=== PATIENT | female | born 1970 | race Caucasian/White ===

== ENCOUNTER 2020-10-04 07:38 | Outpatient (REF) | payer OTHER, SELFPAY ==
--- NOTE | 2020-10-04 07:42 | XR_ITS ---
EXAMINATION: XR CERVICAL SPINE CLINICAL INFORMATION: Cervicalgia COMPARISON: None TECHNIQUE: 3 views of the cervical spine were obtained. FINDINGS: No fracture or subluxation. Vertebral body height and alignment is maintained. There is diffuse disc space narrowing, most prominently spanning from the C4 level through C7. Associated endplate osteophyte formation and sclerosis. Mild facet arthropathy. The atlantoaxial joint is well aligned. The dens is intact. The lung apices are clear. The prevertebral soft tissues are unremarkable. XR/XR cervical spine 3V IMPRESSION: Moderate degenerative changes of the mid to lower cervical spine.
== END 2020-10-04 07:39 | disposition home or self-care (01) ==
LOC: HO.XRAY 07:38
PROVIDERS: Visit Provider Internal Medicine
DX: M54.2 Cervicalgia (principal)
CPT/HCPCS: 72040

== ENCOUNTER 2020-12-13 10:36 | Outpatient (REF) | payer OTHER, SELFPAY ==
[2020-12-17 06:57] LABS: HPV mRNA E6/E7 rflx Not Detected (Not Detected)
== END 2020-12-13 10:37 | disposition home or self-care (01) ==
LOC: HO.LAB 10:36
PROVIDERS: PCP Internal Medicine; Visit Provider Advanced Practice Midwife
DX: Z01.419 Encounter for gynecological examination (general) (routine) without abnormal findings (principal); E78.00 Pure hypercholesterolemia, unspecified; E03.9 Hypothyroidism, unspecified
CPT/HCPCS: 36415; 87624; 88142

== ENCOUNTER 2021-02-15 08:00 | Outpatient (REF) | payer OTHER, SELFPAY ==
--- NOTE | ~2021-02-15 | MR_ITS ---
MR CERVICAL SPINE WITHOUT CONTRAST CLINICAL INFORMATION: Bilateral lower cervical root compression and possible myelopathy. COMPARISON: Cervical spine radiographs 10/04/2020. TECHNIQUE: MRI of the cervical spine was obtained using routine sequences without contrast. FINDINGS: Straightening of the cervical lordosis. There is moderate disc volume loss at C4-C5, C5-C6, and C6-C7. There Modic type I endplate signal changes at C4-C5 and Modic type II endplate signal changes at C5-C6 and C6-C7. There is bone marrow edema within the right C2-C3, left C3-C4, and the bilateral T3 and T4 facets that is most likely degenerative or inflammatory. There Modic type I endplate signal changes at C4-C5. Vertebral body heights are maintained. The craniocervical junction is unremarkable. The cervical arterial flow voids are maintained. There are no significant soft tissue findings. Partially imaged intracranial compartment is unremarkable. C2-C3: There is advanced right-sided hypertrophic facet arthropathy resulting in mild/moderate right-sided foraminal encroachment. There is no central canal stenosis and there is no left foraminal stenosis. C3-C4: Uncovertebral joint spurring and advanced facet arthropathy result in mild to moderate left-sided foraminal stenosis. No central canal and no right foraminal stenosis. C4-C5: Disc osteophyte mildly narrows the central canal. Uncovertebral joint spurring and advanced facet arthropathy result in moderate bilateral foraminal stenosis. C5-C6: Disc osteophyte mildly narrows the central canal. Uncovertebral joint spurring and facet arthropathy result in moderate bilateral foraminal stenosis. C6-C7: Disc osteophyte mildly narrows the central canal. Uncovertebral joint spurring and facet arthropathy result in moderate to severe right and mild left foraminal stenosis. C7-T1: Disc contour is normal. No central canal stenosis and no foraminal stenosis. MR/MR cervical spine wo con IMPRESSION: - Multilevel cervical spondylosis. Multifactorial degenerative changes result in moderate to severe right-sided foraminal stenosis at C6-C7 in varying degrees of mild to moderate foraminal encroachment throughout the remainder of the cervical spine as discussed above. There is advanced multilevel hypertrophic facet arthropathy. There is no severe central canal stenosis within the cervical spine. - There is bone marrow edema within the right C2-C3, left C3-C4, and the bilateral T3 and T4 facets that is most likely degenerative or inflammatory. There Modic type I endplate signal changes at C4-C5.
== END 2021-02-15 08:01 | disposition home or self-care (01) ==
LOC: HO.MRI 08:00
PROVIDERS: Visit Provider Psychiatry & Neurology Neurology
DX: M54.12 Radiculopathy, cervical region (principal)
CPT/HCPCS: 72141

== ENCOUNTER 2021-04-12 08:29 | Outpatient (REF) | payer OTHER, SELFPAY ==
--- NOTE | ~2021-04-12 | MM_ITS ---
EXAMINATION: MM SCREENING DIGITAL BREAST TOMOSYNTHESIS, BILATERAL CLINICAL INFORMATION: Screening. Asymptomatic. The lifetime risk of breast cancer based on the Tyrer-Cuzick Model is 8.6%. COMPARISON: Mammography: June 11, 2018 and July 23, 2013 TECHNIQUE: Digital mammography is performed in craniocaudal and mediolateral oblique views along with computer-aided detection (CAD). Digital breast tomosynthesis is performed in implant-displaced craniocaudal and implant-displaced mediolateral oblique views along with computer-aided detection (CAD). Synthesized 2D images are generated from the tomosynthesis. FINDINGS: There are scattered areas of fibroglandular density (ACR BI-RADS breast composition Category b). There are no significant masses, abnormal calcifications, or other abnormalities. MM/MM tomosynthesis screen imp BI IMPRESSION: There are no significant changes from prior study. ASSESSMENT: BI-RADS 1: Negative RECOMMENDATION: Routine annual mammography screening. This patient's information was entered into a reminder system with a target due date for their next mammogram.
== END 2021-04-12 08:30 | disposition home or self-care (01) ==
LOC: HO.MAMMO 08:29
PROVIDERS: Visit Provider Internal Medicine
DX: Z12.31 Encounter for screening mammogram for malignant neoplasm of breast (principal)
CPT/HCPCS: 77063; 77067

== ENCOUNTER 2022-05-24 07:29 | Outpatient (REF) | payer OTHER, SELFPAY ==
[2022-05-24 07:51] LABS: MANUAL DIFF FLAG NO
[2022-05-24 09:10] LABS: Basophils Percent Auto 0.2 % (0-2); Eosinophils Absolute Auto 0.1 X10*3/uL (0.0-0.4); Hematocrit 39.8 % (37.0-47.0); Hemoglobin 12.9 g/dl (12.0-16.0); Imm Gran Abs Auto 0.02 X10*3/uL (0.00-0.03); Imm Gran Pct Auto 0.4 % (0.0-0.4); Lymphocytes Absolute Auto 1.5 X10*3/uL (1.2-4.9); Lymphocytes Percent Auto 32.7 % (20-40); Mean Corpuscular HGB Conc 32.4 g/dl (31.0-35.0); Mean Corpuscular Hemoglobin 32.5 pg (27.0-33.0); Mean Corpuscular Volume 100.3 fL (80.0-98.0); Mean Platelet Volume 9.4 fL (9.4-12.3); Monocytes Absolute Auto 0.4 X10*3/uL (0.1-1.2); Monocytes Percent Auto 8.8 % (2-11); Neutrophils Absolute Auto 2.5 x10*3/uL (2.0-8.3); Neutrophils Percent Auto 55.9 % (45-73); Platelet Count 276 X10*3/uL (160-400); Red Blood Count 3.97 X10*6/uL (4.20-5.50); Red Cell Distribution Width 12.2 % (11.0-16.0); White Blood Count 4.5 X10*3/uL (4.8-10.8)
[2022-05-24 09:58] LABS: TSH reflex Free T4 2.46 uIU/mL (0.32-4.0)
[2022-05-24 10:18] LABS: Alanine Aminotransferase 15 U/L (0-31); Albumin Level 4.5 g/dL (3.5-5.0); Alkaline Phosphatase 66 U/L (39-117); Anion Gap 13 (12-20); Aspartate Amino Transferase 19 U/L (5-31); Bilirubin Total 0.5 mg/dL (0.0-1.0); Blood Urea Nitrogen 14 mg/dL (9-16); Calcium 9.3 mg/dL (8.4-10.2); Carbon Dioxide 27 mmol/L (22-29); Chloride 105 mmol/L (96-108); Cholesterol 241 mg/dL; Estimated Glomerular Filt Rate > 60; Glucose Fasting 93 mg/dL (60-99); HDL Cholesterol 85 mg/dL; LDL Cholesterol Calculated 146 mg/dl; Potassium 4.5 mmol/L (3.3-5.1); Sodium 140 mmol/L (135-145); Total Protein 7.1 g/dL (6.5-8.0); Triglycerides 54 mg/dL
== END 2022-05-24 07:30 | disposition home or self-care (01) ==
LOC: HO.LAB 07:29
PROVIDERS: PCP Internal Medicine; Visit Provider Nurse Practitioner Family
DX: E78.00 Pure hypercholesterolemia, unspecified (principal); I10 Essential (primary) hypertension; Z13.29 Encounter for screening for other suspected endocrine disorder
CPT/HCPCS: 36415; 80053; 80061; 84443; 85025

== ENCOUNTER 2023-02-26 11:17 | Outpatient (REF) | payer MEDICAID, SELFPAY ==
--- NOTE | ~2023-02-26 | MM_ITS ---
EXAMINATION: MM SCREENING DIGITAL BREAST TOMOSYNTHESIS, BILATERAL CLINICAL INFORMATION: Screening. Asymptomatic. The lifetime risk of breast cancer based on the Tyrer-Cuzick Model is 7%. COMPARISON: Mammography: 04/12/2021; outside mammography 06/11/2018, 07/23/2013 ([facility]). TECHNIQUE: Digital mammography is performed in craniocaudal and mediolateral oblique views along with computer-aided detection (CAD). Digital breast tomosynthesis is performed in implant-displaced craniocaudal and implant-displaced mediolateral oblique views along with computer-aided detection (CAD). Synthesized 2D images are generated from the tomosynthesis. FINDINGS: There are scattered areas of fibroglandular density (ACR BI-RADS breast composition Category b). There are bilateral implants. The margins are smooth and similar to prior studies. Parenchymal pattern is similar to prior exams. No developing density or interval architectural abnormality. There are no significant masses, abnormal calcifications, or other abnormalities. The axilla and skin contours are unremarkable. No significant changes. MM/MM tomosynthesis screen imp BI IMPRESSION: No mammographic evidence of malignancy. ASSESSMENT: BI-RADS 1: Negative RECOMMENDATION: Routine annual mammography screening. This patient's information was entered into a reminder system with a target due date for their next mammogram.
== END 2023-02-26 11:18 | disposition home or self-care (01) ==
LOC: HO.MAMMO 11:17
PROVIDERS: PCP Internal Medicine; Visit Provider Internal Medicine
DX: Z12.31 Encounter for screening mammogram for malignant neoplasm of breast (principal)
CPT/HCPCS: 77063; 77067

== ENCOUNTER 2023-05-30 09:06 | Day surgery (SDC) | payer MEDICAID, SELFPAY ==
[2023-05-30 09:37] VITALS: BMI 23.2
[2023-05-30 09:42] VITALS: BP 127/86; PULSE 62; RESP 16; TEMP 36.3; O2SAT 99
[2023-05-30] MEDS: Lactated Ringers 1,000 ML 100 ML IVCONT (09:45)
--- NOTE | 2023-05-30 09:45 | MHC.SHP ---
Pre-Procedural Eval Section A Date of Service: 05/30/23 Section B Chief Complaint: screening Relevant Family History (Specify if Yes): No Relevant Social History: Tobacco Use Present Medications: see Short Stay Collaborative assessment Medical History: Significant History History of Previous Operations: Relevant previous surgery/procedure and date(s) (partial hysterectomy, tubal ligation ) Allergies: Allergies Allergy/AdvReac Type Severity Reaction Status Date / Time Sulfa (Sulfonamide Allergy Unknown rash Verified 05/18/22 08:53 Antibiotics) Review of Systems Sugical H&P ROS: Negative: Constitution, Cardiovascular, Respiratory, Neurological, Psychiatric, Hem-Onc, Allergic/Immunologic, Gastrointestinal, Genitourinary, Musculoskeletal, Integumentary, Endocrine and Eyes/Ears/Nose/Throat Exam Surgical H&P Exam: Normal: HEENT, Normal: Heart, Normal: Lungs, Normal: Extremities, Normal: Abdomen, Normal: Skin and Normal: Neurological Plan Diagnosis/Plan: Unchanged I have reviewed the history and physical and performed a pertinent physical examination on my patient. No changes have occurred unless specified. Time Spent With Patient Time: Total time managing care of this patient today ____ minutes.
--- NOTE | 2023-05-30 09:59 | HO.ANESPROP2 ---
[facility] Active Problems Active Problems: All Active Problems (Updated 06/04/22 @ 10:06 by Claire Navarro MD) Thyroid disorder screening (Acute) Physical exam (Acute) Radicular pain of shoulder (Acute) Hand numbness (Acute) Degenerative disc disease, cervical (Acute) Hypercholesterolemia (Acute) Hypothyroid (Acute) Past Medical History Medical History Breast cancer screening Cervical cancer screening Hypercholesterolemia Hypothyroid Neck pain Psoriasis Thyroid nodule Family History Family History Father No problems noted. Mother No problems noted. Brother In good health Son In good health Daughter In good health Family history of problems with anesthesia: No Surgical History Surgical History Breast implant in situ H/O tubal ligation H/O: hysterectomy History of Problems with Anesthesia: No Social History Social History (Updated 05/18/22 @ 08:54 by VENITA Deluna) Housing: Apartment Alcohol intake: current Patient Tobacco Use Status: Current everyday Tobacco user Tobacco use type: Cigarette Cigarettes Per Day: 5 e-Cigarette/Vaping Use: Never Used Second Hand Smoke Exposure: No Use of substances other than those prescribed or required for medical reasons: No Are you DNR?: No Advance Directives: No Advance Directives Information Provided: Yes service: No Current occupational status: employed Current occupational exposures/hazards: No Sexual orientation: Straight/Heterosexual Cognitive needs: No Hearing needs: No Vision needs: No Meds Allergies Allergy/AdvReac Type Severity Reaction Status Date / Time Sulfa (Sulfonamide Allergy Unknown rash Verified 05/18/22 08:53 Antibiotics) Active Medications: Current Medications Lactated Ringer's (Lr) 1,000 mls @ 100 mls/hr IVCONT .Q10H MARIELOS Last Admin: 05/30/23 09:45 Dose: 100 mls/hr Exam Exam Date and Time: May 30, 2023 0959 Height,Weight and Vital Signs: Height 5 ft 4 in Weight 61.235 kg Last Vital Signs Temp 97.3 F 05/30/23 09:42 Pulse 62 05/30/23 09:42 Resp 16 05/30/23 09:42 BP 127/86 05/30/23 09:42 Pulse Ox 99 05/30/23 09:42 O2 Del Method Room Air 05/30/23 09:42 Airway Mallampati Class: II TM Dist: >3cm Neck ROM: Full Assessment and Plan Assessment Anesthesia Assessment: Anesthesia Plan Discussed, Smoking Cess. Discussed and Chart Reviewed Final Anesthetic Review Family History of Problems with Anesthesia: No History of Problems with Anesthesia: No NPO: Yes ASA Class: II Final Preanesthetic Review: No Changes in Pt Med Stat, Meds/Allgs Chart Reviewed, Consent Obtained/Reviewed and Anes Risks/Benef Reviewed Patient Risk: Low Procedure Risk: Low Anesthetic Plan Anesthetic Plan: MAC: Disposition: Standard PACU
--- NOTE | 2023-05-30 10:16 | W.PM.OPN ---
Operative Note Operative Note Date of Service: 05/30/23 Narrative: Operative Information Procedure Description: Colonoscopy Indication: screening Anesthesia: MAC COLONOSCOPY Instrument: Olympus variable stiffness pediatric scope 190L Colonoscopy Monitoring: Vital signs and clinical assessment, continuous EKG monitoring, Pulse oximetry, Carbon Dioxide monitoring and blood pressure monitoring were done throughout the procedure. Colon withdrawal time was 9 minutes. Procedure: The patient was placed in the left lateral decubitis position and pre-procedure medications were administered. After a digital rectal examination of the ano-rectum, the video colonoscope was inserted into the rectum and advanced through the colon to the cecum/TI. The colonoscope was slowly withdrawn in a retrograde panoramic fashion and the colon mucosa was carefully examined including a retroflexed view of the rectum. Findings and interventions are described below. Procedure Difficulty: easy Findings: Terminal Ileum-normal Right sided retroflexion--normal Cecum:normal Ascending Colon: normal Transverse Colon -normal Descending Colon:normal Sigmoid Colon: normal Rectum: Retroflexion with small internal hemorrhoids, grade I Anorectum - normal Colon preparation: [place] Bowel Preparation Scale Right colon; 2 Transverse colon: 2 Left colon; 3 (0 = Unprepared colon segment with mucosa not seen due to solid stool that cannot be cleared. 1 = Portion of mucosa of the colon segment seen, but other areas of the colon segment not well seen due to staining, residual stool and/or opaque liquid. 2 = Minor amount of residual staining, small fragments of stool and/or opaque liquid, but mucosa of colon segment seen well. 3 = Entire mucosa of colon segment seen well with no residual staining, small fragments of stool or opaque liquid) Impression and Post Procedure Diagnosis: internal hemorrhoids Plan: High fiber diet leaflet Avoid straining at stool, epsom salts and sitz bath, anusol supps or cream Repeat Colonoscopy in 10 years or earlier if clinically indicated Above findings were reviewed with the patient and relevant handouts were provided if indicated.
[2023-05-30 10:40] VITALS: BP 95/60; PULSE 58; RESP 16; TEMP 36.3; O2SAT 98
[2023-05-30 10:55] VITALS: BP 109/74; PULSE 73; RESP 14; TEMP 36.3; O2SAT 99
== END 2023-05-30 11:24 | disposition home or self-care (01) ==
PROVIDERS: PCP Internal Medicine; Visit Provider Internal Medicine Gastroenterology
PROC: 0DJD8ZZ Inspection of Lower Intestinal Tract, Via Natural or Artificial Opening Endoscopic (ICD-10-PCS; CPT 45378; principal; 2023-05-30 10:50)
DX: Z12.11 Encounter for screening for malignant neoplasm of colon (principal); K64.0 First degree hemorrhoids; E78.00 Pure hypercholesterolemia, unspecified; E03.9 Hypothyroidism, unspecified; F17.210 Nicotine dependence, cigarettes, uncomplicated; Z90.710 Acquired absence of both cervix and uterus
CPT/HCPCS: 45378

== ENCOUNTER → 2023-05-30 09:06 | Outpatient (BNV) | payer MEDICAID, SELFPAY | PROVIDERS: PCP Internal Medicine; Visit Provider Internal Medicine Gastroenterology | DX: Z12.11 Encounter for screening for malignant neoplasm of colon (principal); K64.0 First degree hemorrhoids | CPT/HCPCS: 45378 ==

== ENCOUNTER 2023-06-05 08:36 | Emergency (ER) | payer MEDICAID, SELFPAY ==
[2023-06-05 08:44] VITALS: BP 127/83; PULSE 79; RESP 18; TEMP 36.1; O2SAT 100; BMI 23.3
--- NOTE | 2023-06-05 10:18 | ED.GENADULT ---
HPI - General Adult General Chief complaint: Back Pain/Injury Stated complaint: lower back pain Time Seen by Provider: 06/05/23 09:53 Source: patient Mode of arrival: ambulatory Limitations: no limitations History of Present Illness HPI narrative: 52-year-old female presents to the ED for back pain that is worse on movement. Patient states back pain since Sunday night after bending down and then reaching for her plates. Patient states felt pain instantly. patient denies any blunt trauma to the back, urinary/ bowel incontinence, nausea, vomiting, fever, chills, dysuria, hematuria, flank pain, or trouble walking. Patient works as a [employer] and does heavy lifting. patient denies any history of IV drug use and denies any history of HIV or hep C. Patient denies any lower extremity tingling/numbness Related Data Previous Rx's Medication Instructions Recorded bisacodyl 5 mg tablet,delayed 10 mg PO ONCE 1 day #2 tabs 04/04/23 release (Dulcolax (bisacodyl)) polyethylene glycol 3350 17 238 g PO ONCE 1 day #238 grams 04/04/23 gram/dose oral powder (Miralax) bisacodyl 5 mg tablet,delayed 10 mg PO ONCE 1 day #2 tabs 05/24/23 release (Dulcolax (bisacodyl)) polyethylene glycol 3350 17 238 g PO ONCE 1 day #238 grams 05/24/23 gram/dose oral powder (Miralax) cyclobenzaprine 10 mg tablet 10 mg PO TID PRN muscle spasm 5 06/05/23 days #15 tabs naproxen 500 mg tablet 500 mg PO BID PRN pain 7 days #14 06/05/23 tabs prednisone 20 mg tablet 40 mg PO DAILY 5 days #10 tabs 06/05/23 Allergies Allergy/AdvReac Type Severity Reaction Status Date / Time Sulfa (Sulfonamide Allergy Unknown rash Verified 05/18/22 08:53 Antibiotics) Review of Systems Review of Systems: Back pain Yes all other systems are reviewed and are negative PMFSH Past Medical History Medical History (Updated 06/06/23 @ 00:01 by Mari Ellis) Breast cancer screening Cervical cancer screening Hypercholesterolemia Hypothyroid Neck pain Psoriasis Thyroid nodule Surgical History Breast implant in situ H/O tubal ligation H/O: hysterectomy Family History Family History Father No problems noted. Mother No problems noted. Brother In good health Son In good health Daughter In good health Social History Social History (Updated 05/18/22 @ 08:54 by VENITA Deluna) Housing: Apartment Alcohol intake: current Patient Tobacco Use Status: Current everyday Tobacco user Tobacco use type: Cigarette Cigarettes Per Day: 5 e-Cigarette/Vaping Use: Never Used Second Hand Smoke Exposure: No service: No Current occupational status: employed Current occupational exposures/hazards: No Sexual orientation: Straight/Heterosexual Cognitive needs: No Hearing needs: No Vision needs: No Physical Exam ED Vital Signs: Vital Signs - 24 hr 06/05/23 08:44 Temperature 97 F Pulse Rate 79 Respiratory Rate 18 Blood Pressure 127/83 Pulse Oximetry 100 Oxygen Delivery Method Room Air BMI result Body Mass Index 23.3 Const General: cooperative, healthy appearing, comfortable, no acute distress, well developed, alert, awake and Physically active Orientation/consciousness: oriented to person, oriented to place, oriented to time and patient oriented x3 HENMT Head: Yes normal to inspection, Yes No palpable skull fracture present, Yes normocephalic, Yes atraumatic and No abrasion Eyes General: appearance normal, both eyes and all related structures Neck Neck: Yes normal visual inspection, Yes full ROM, Yes no lymphadenopathy, Yes no meningeal signs, Yes trachea midline, Yes supple, No anterior neck swelling and No tender Chest Chest palpation & inspection: normal inspection of the chest and normal palpation of entire chest wall Resp Effort & Inspection: normal respiratory effort and able to speak in complete sentences Auscultation: clear to auscultation bilaterally Cardio Jugular venous distension: no JVD Heart sounds: S1 normal heart sound present and S2 normal heart sound present GI Inspection: Yes normal to inspection and No abdominal wall ecchymosis Palpation (GI): Soft to palpation, not firm, nontender, no guarding and not rigid General: No CVA tenderness and Yes no CVA tenderness Back/Spine/Pelvis Back: no CVA tenderness, No CVA tenderness and back tenderness ( Negative for spine tenderness. Positive for muscular back pain movement) Skin General skin exam: no rashes or lesions noted and elasticity normal Neuro General: oriented to person, oriented to place, oriented to time, patient oriented x3, gait normal, tone normal, moves all extremities, Normal light touch and pain sensation, no meningeal signs, no focal motor deficits, CN's II-XI intact bilaterally and normal sensation to monofilament Extrem General: Yes normal to inspection and Yes full ROM Psych Appearance: grossly normal, well kempt and not disheveled Medical Decision Making Medical Decision Making MDM Narrative: 52 yold female presents to the ED for back pain after reaching for her plates. patient denies any abdominal pain, nausea, vomiting, flank pain, fever, chills, dysuria, hematuria, or any urinary/ bowel incontinence. Patient denies any IV drug use or history of HIV hep C. patient stable presently no indication for x-ray. Differential Diagnosis Differential Diagnoses: The differential diagnosis associated with the presentation includes ( Back sprain, muscle spasm, fracture, arthritis, cauda equinus syndrome, epidural abscess, UTI, kidney stones) Admission/Observation Consideration of admission/observation: Escalation of care including admission/observation considered External Record Review External record reviewed: Other (Prior ED visist) Tests considered The following testing was considered but not selected: Xray, UA Prescription Management I considered prescription management with: Pain Medication and Other Discharge Plan Discharge Clinical Impression: Back pain, Low back sprain Patient Disposition: Home, Self-Care Instructions: Back Pain (ED) Additional Instructions: Return to the ED immediately for urinary/ bowel incontinence, severe back pain, abdominal pain, nausea, vomiting, flank pain, fever, chills, dysuria, hematuria, inability to walk, paralysis of lower extremity, tingling, numbness, or any other concerning symptoms. Please follow-up with primary care provider. Prescriptions: New prednisone 20 mg tablet 40 mg PO DAILY 5 Days Qty: 10 0RF naproxen 500 mg tablet 500 mg PO BID PRN (Reason: pain) 7 Days Qty: 14 0RF cyclobenzaprine 10 mg tablet 10 mg PO TID PRN (Reason: muscle spasm) 5 Days Qty: 15 0RF Rx Instructions: side effect is drowsiness. Do not take at work or while driving. No Action polyethylene glycol 3350 [Miralax] 17 gram/dose powder 238 g PO ONCE 1 Days Qty: 238 0RF Rx Instructions: Take as directed by mouth the day before your procedure. bisacodyl [Dulcolax (bisacodyl)] 5 mg tablet,delayed release (DR/EC) 10 mg PO ONCE 1 Days Qty: 2 0RF Rx Instructions: take at noon the day before colonoscopy bisacodyl [Dulcolax (bisacodyl)] 5 mg tablet,delayed release (DR/EC) 10 mg PO ONCE 1 Days Qty: 2 0RF Rx Instructions: take orally as directed prior to colonoscopy polyethylene glycol 3350 [Miralax] 17 gram/dose powder 238 g PO ONCE 1 Days Qty: 238 0RF Rx Instructions: take orally as directed prior to colonoscopy Stand Alone Forms: Work/School Release Interventions: ED Discharge Assessment Last Done: 06/05/23 10:37 Discharge Date/Time: 06/05/23 10:38 Print Language: Cymro
== END 2023-06-05 10:38 | disposition home or self-care (01) ==
PROVIDERS: Emergency Provider Emergency Medicine; PCP Internal Medicine
DX: M54.50 Low back pain, unspecified (principal); Z79.899 Other long term (current) drug therapy
CPT/HCPCS: 99282; 99283

== ENCOUNTER 2023-06-18 09:58 | Outpatient (REF) | payer MEDICAID, SELFPAY ==
--- NOTE | ~2023-06-18 | US_ITS ---
EXAMINATION: US THYROID CLINICAL INFORMATION: Nontoxic single thyroid nodule. COMPARISON: Ultrasound thyroid 06/25/2018. TECHNIQUE: Linear transducer guardado-scale and color Doppler examination with attention to the region of the thyroid. FINDINGS: SIZE: Measurements of the thyroid lobes and nodules are given in sagittal, anteroposterior and transverse dimensions respectively. Right Thyroid Lobe: 4.1 x 1.3 x 1.7 cm, volume 4.7 mL. Previously 4.5 x 1.2 x 1.6 cm, volume 4.6 mL. Parenchyma: The gland echotexture is homogeneous. Thyroid vascularity is increased. Left Thyroid Lobe: 3.8 x 1.3 x 1.5 cm, volume 3.9 mL. Previously 4.1 x 1.1 x 1.2 cm, volume 3.2 mL. Parenchyma: The gland echotexture is homogeneous. Thyroid vascularity is increased. Isthmus: 0.3 cm in maximum AP dimension. Previously 0.2 cm. Estimated total number of nodules greater than or equal to 1 cm: 1. Slasher Sawyer nodules are described as follows: 1. Location: Right inferior. Size: 1.1 x 0.6 x 0.9 cm, volume 0.3 mL. Previously: 0.8 x 0.7 x 0.6 cm, volume 0.2 mL. Nodule characteristics: Composition: Solid (2). Echogenicity: Hypoechoic (2). Shape: Not taller than wide (0). Margins: Smooth (0). Echogenic Foci: None (0). ACR TI-RADS total points: 4 ACR TI-RADS category: 4 Significant change in size (>/= 20% in 2 dimensions and minimal increase of 2 mm or 50% or greater increase in volume): Yes Change in features: No Change in ACR TI-RADS risk category: No NODES: No lymphadenopathy is seen in the tissue surrounding the thyroid gland. US/US thyroid IMPRESSION: 1. A 1.1 cm right thyroid lobe TR 4 nodule is seen, as detailed. Recommend continued thyroid ultrasound surveillance. 2. There is heterogeneous thyroid echotexture and increase in vascularity, which may be associated with thyroiditis. ACR TI-RADS RECOMMENDATION REFERENCE: Ultrasound-guided fine-needle aspiration, follow up ultrasound, no further followup. * TR1 (0 point) and TR2 (2 points): No FNA or followup * TR3 (3 points): FNA if more than or equal to 2.5 cm in maximum dimension, follow up ultrasound in 1, 3 and 5 years if 1.5 to 2.4 cm in maximum dimension. * TR4 (4-6 points): FNA if more than or equal to 1.5 cm in maximum dimension, follow up ultrasound in 1, 2, 3 and 5 years if 1 to 1.4 cm in maximum dimension. * TR5 (more than or equal to 7 points): FNA if more than or equal to 1 cm in maximum dimension, follow up ultrasound every year for 5 years if 0.5 to 0.9 cm in maximum dimension. * TR3, TR4 or TR5 nodules that are below the size threshold for follow up receive no followup.
== END 2023-06-18 09:59 | disposition home or self-care (01) ==
LOC: HO.US 09:58
PROVIDERS: PCP Internal Medicine; Visit Provider Internal Medicine
DX: E04.1 Nontoxic single thyroid nodule (principal)
CPT/HCPCS: 76536

== ENCOUNTER 2024-03-25 09:43 | Outpatient (REF) | payer OTHER, SELFPAY ==
--- NOTE | ~2024-03-25 | MM_ITS ---
EXAMINATION: MM SCREENING DIGITAL BREAST TOMOSYNTHESIS, BILATERAL CLINICAL INFORMATION: Screening. Asymptomatic. COMPARISON: Mammography: 02/26/2023, 04/12/2021; outside mammography 06/11/2018, 07/23/2013 ([facility]). TECHNIQUE: Digital mammography is performed in craniocaudal and mediolateral oblique views along with computer-aided detection (CAD). Digital breast tomosynthesis is performed in implant-displaced craniocaudal and implant-displaced mediolateral oblique views along with computer-aided detection (CAD). Synthesized 2D images are generated from the tomosynthesis. FINDINGS: There are scattered areas of fibroglandular density (ACR BI-RADS breast composition Category b). There are bilateral implants in place without gross complication or abnormality. Implant contours are smooth. There are vascular calcifications. 2 nodular asymmetries in the upper anterior right breast are unchanged from 2018. A rounded asymmetry on the CC implant displaced view right breast is unchanged from prior exams, just lateral to the nipple line posterior one third. There are no suspicious masses, suspicious grouped calcifications, or areas of architectural distortion in either breast. The parenchymal pattern is stable from prior exams. No skin or axillary abnormalities. MM/MM tomosynthesis screen imp BI IMPRESSION: No mammographic evidence of malignancy. No significant interval change. ASSESSMENT: BI-RADS BI-RADS 2 - Benign Findings RECOMMENDATION: Routine annual mammography screening. 1 year F/U This patient's information was entered into a reminder system with a target due date for their next mammogram.
== END 2024-03-25 09:44 | disposition home or self-care (01) ==
LOC: HO.MAMMO 09:43
PROVIDERS: PCP Internal Medicine; Visit Provider Internal Medicine
DX: Z12.31 Encounter for screening mammogram for malignant neoplasm of breast (principal)
CPT/HCPCS: 77063; 77067

== ENCOUNTER → 2024-03-25 10:00 | Outpatient (BNV) | payer OTHER, SELFPAY | PROVIDERS: PCP Internal Medicine; Visit Provider Radiology Diagnostic Radiology | DX: Z12.31 Encounter for screening mammogram for malignant neoplasm of breast (principal) | CPT/HCPCS: 77063; 77067 ==

== ENCOUNTER 2024-03-27 11:39 | Emergency (ER) | payer OTHER, SELFPAY ==
[2024-03-27 11:43] VITALS: BP 151/79; PULSE 69; RESP 17; TEMP 36.1; O2SAT 98; BMI 23.2
--- NOTE | 2024-03-27 11:49 | ED.GENADULT ---
HPI - General Adult General Chief complaint: Wound/Laceration Stated complaint: Infection R hand Time Seen by Provider: 03/27/24 12:07 Source: patient Mode of arrival: ambulatory Limitations: no limitations History of Present Illness HPI narrative: 53-year-old left-hand dominant female presents to the ER for evaluation of a painful pustule and swollen area on her right index finger that she noticed 1 week ago. She states the area started as a small cut, she has not sure how she got it. Over the last week it has gotten more painful, swollen and now has a large pustule over the proximal finger. She is able to fully extend and flex the finger. No numbness or tingling. No trauma that she can recall. She does wrap her dog's leash around that hand and is wondering if any bacteria got into the cut. She denies any fevers or chills. She has not diabetic. No drainage from the pustule MD complaint: right index finger pain and infection Onset (ago): week(s) (1) Location: right and upper extremity Radiation: distal Severity: moderate Severity scale (1-10): 5 Quality: aching Pain Consistency: intermittent Relieving factors: immobilization Exacerbating factors: other (palpation) Associated symptoms: denies other symptoms Treatments prior to arrival: none Related Data Previous Rx's ?Medication ?Instructions ?Recorded bisacodyl 5 mg tablet,delayed 10 mg (2 x 5 mg) PO ONCE 1 day #2 04/04/23 release (Dulcolax (bisacodyl)) tabs polyethylene glycol 3350 17 238 g PO ONCE 1 day #238 grams 04/04/23 gram/dose oral powder (Miralax) bisacodyl 5 mg tablet,delayed 10 mg (2 x 5 mg) PO ONCE 1 day #2 05/24/23 release (Dulcolax (bisacodyl)) tabs polyethylene glycol 3350 17 238 g PO ONCE 1 day #238 grams 05/24/23 gram/dose oral powder (Miralax) cyclobenzaprine 10 mg tablet 10 mg PO TID PRN muscle spasm 5 06/05/23 days #15 tabs naproxen 500 mg tablet 500 mg PO BID PRN pain 7 days #14 06/05/23 tabs prednisone 20 mg tablet 40 mg (2 x 20 mg) PO DAILY 5 days 06/05/23 #10 tabs doxycycline hyclate 100 mg tablet 100 mg PO BID #14 tabs 03/27/24 Allergies Allergy/AdvReac Type Severity Reaction Status Date / Time Sulfa (Sulfonamide Allergy Unknown rash Verified 03/27/24 11:45 Antibiotics) Review of Systems Review of Systems: Yes all other systems are reviewed and are negative [facility] Past Medical History Medical History (Updated 03/27/24 @ 12:21 by MICHAEL Neil) Cervical cancer screening Breast cancer screening Neck pain Hypercholesterolemia Thyroid nodule Hypothyroid Psoriasis Surgical History Breast implant in situ H/O tubal ligation H/O: hysterectomy Family History Family History Father No problems noted. Mother No problems noted. Brother In good health Son In good health Daughter In good health Social History Social History (Updated 05/18/22 @ 08:54 by VENITA Deluna) Housing: Apartment Alcohol intake: current Patient Tobacco Use Status: Current everyday Tobacco user Tobacco use type: Cigarette Cigarettes Per Day: 5 e-Cigarette/Vaping Use: Never Used Second Hand Smoke Exposure: No Advance Directives: No Advance Directives Information Provided: No Do you have a plan to hurt others: No Plan service: No Current occupational status: employed Current occupational exposures/hazards: No Sexual orientation: Straight/Heterosexual Cognitive needs: No Hearing needs: No Vision needs: No Physical Exam ED Vital Signs: Vital Signs - 24 hr 03/27/24 11:43 03/27/24 13:02 Temperature 97 F 100.2 F Pulse Rate 69 76 Respiratory Rate 17 18 Blood Pressure 151/79 H 142/96 H Pulse Oximetry 98 99 Oxygen Delivery Method Room Air Room Air BMI result Body Mass Index 23.2 Appearance: Alert. Oriented X3. No acute distress. HEENT: normal inspection CVS: Normal heart rate and rhythm. Pulses normal. Respiratory: No respiratory distress. Skin: Skin warm and dry. Normal skin color. Normal skin turgor. No rashes. Extremities: dorsal aspect of the right index finger with a 1 cm pustule with yellowish drainage superficially under the skin, very fluctuant with a central scab. Mild generalized swelling of the proximal 1st digit with mild associated erythema extending to the 1st MCP. Normal flexion and extension of the MCP, PIP and D IP joints. Equal hand grasp bilaterally. Nontender along the palmar aspect of the tendon sheath. Neurovascularly intact distally. Neuro: Oriented X 3. No motor deficit. No sensory deficit. Course Course Course Narrative: RME: 53-year-old female presents to the ED for right index finger swelling with small pus on top. Patient has complete range of motion of finger. Patient thinks it is due to leash being tight around finger. seen in [facility] Medications Administered Discontinued Medications Generic Name Dose Route Start Last Admin Trade Name Freq PRN Reason Stop Dose Admin Bacitracin 1 appl 03/27/24 12:37 03/27/24 12:56 Bacitracin Oint 0.9 Gm Packet TOPICAL 03/27/24 12:38 1 appl ONCE ONE Administration Protocol Lidocaine HCl 2 ml 03/27/24 12:20 03/27/24 12:55 Lidocaine Hcl 1 % Mpf 2 Ml Vial INFILTRATI 03/27/24 12:21 2 ml ONCE ONE Administration Procedures Abscess I/D Site: hand Side (if applicable): right Local Anesthetic: lidocaine 1% Amount of anesthesia used (mL): 0.5 Technique: incised with blade Sent for culture/gram staining?: No Irrigation: Yes Packing used?: none Medical Decision Making Medical Decision Making MDM Narrative: 53-year-old female presents to the ER for evaluation of an infection of her right index finger. Exam is consistent with a small localized abscess. No evidence of tenosynovitis or deeper infection. No trauma to suggest fracture. No recollection of tick bite or spider bite. The surrounding cellulitic areas very minor. No evidence of any necrotizing infection. She has not diabetic. The area was amenable to incision and drainage today and patient was agreeable. A small amount of yellow purulent material was expressed after the area was incised with a 11. Blade. The area was then irrigated with copious amounts of saline. No need for packing as it was very superficial. Topical antibiotic ointment was applied along with a dry sterile dressing. Patient will be placed on oral antibiotics and wound care was discussed along with return precautions. She is stable for discharge home. Patient agrees with plan. Differential Diagnosis Differential Diagnoses: The differential diagnosis associated with the presentation includes Superficial abscess, deep abscess, tenosynovitis, tick bite, spider bite External Record Review External record reviewed: Prior outpatient labs Tests considered The following testing was considered but not selected: considered x-ray of the finger, no trauma Prescription Management I considered prescription management with: Pain Medication and Antibiotic Critical Care Time Critical Care Time Critical Care Time: No Discharge Plan Discharge Clinical Impression: Abscess of finger Qualifiers: Laterality: right Qualified Code(s): L02.511 - Cutaneous abscess of right hand Patient Disposition: Home, Self-Care Instructions: Abscess Incision and Drainage (DC) Additional Instructions: Use warm compresses to the area 2 or 3 times per day or warm soapy water soaks. Keep wound clean and covered. Use topical antibiotic ointment once per day. Take the prescribed antibiotic as directed. Do not go in the sun while on this antibiotic, it can cause a rash. If you have worsening symptoms of infection including increased pain, swelling, redness, drainage, call your doctor or come back to the ER for further evaluation and treatment. Prescriptions: New doxycycline hyclate 100 mg tablet 100 mg PO BID Qty: 14 0RF No Action polyethylene glycol 3350 [Miralax] 17 gram/dose powder 238 g PO ONCE 1 Days Qty: 238 0RF Rx Instructions: Take as directed by mouth the day before your procedure. bisacodyl [Dulcolax (bisacodyl)] 5 mg tablet,delayed release (DR/EC) 10 mg PO ONCE 1 Days Qty: 2 0RF Rx Instructions: take at noon the day before colonoscopy prednisone 20 mg tablet 40 mg PO DAILY 5 Days Qty: 10 0RF naproxen 500 mg tablet 500 mg PO BID PRN (Reason: pain) 7 Days Qty: 14 0RF cyclobenzaprine 10 mg tablet 10 mg PO TID PRN (Reason: muscle spasm) 5 Days Qty: 15 0RF Rx Instructions: side effect is drowsiness. Do not take at work or while driving. bisacodyl [Dulcolax (bisacodyl)] 5 mg tablet,delayed release (DR/EC) 10 mg PO ONCE 1 Days Qty: 2 0RF Rx Instructions: take orally as directed prior to colonoscopy polyethylene glycol 3350 [Miralax] 17 gram/dose powder 238 g PO ONCE 1 Days Qty: 238 0RF Rx Instructions: take orally as directed prior to colonoscopy Stand Alone Forms: Work/School Release Interventions: ED Discharge Assessment Last Done: 03/27/24 13:02 Discharge Date/Time: 03/27/24 13:03 Print Language: Italian
[2024-03-27] MEDS: Lidocaine HCl 1 % MPF 2 ML VIAL INFILTRATI (12:55)
[2024-03-27] MEDS: Bacitracin Oint 0.9 GM PACKET 1 APPL TOPICAL (12:56)
[2024-03-27 13:02] VITALS: BP 142/96; PULSE 76; RESP 18; TEMP 37.9; O2SAT 99
== END 2024-03-27 13:03 | disposition home or self-care (01) ==
PROVIDERS: Emergency Provider Emergency Medicine; PCP Internal Medicine
DX: L02.511 Cutaneous abscess of right hand (principal); M79.641 Pain in right hand; Z79.899 Other long term (current) drug therapy
CPT/HCPCS: 10060; 99282; 99284

== ENCOUNTER 2024-04-05 05:20 | Emergency (ER) | payer OTHER, SELFPAY ==
[2024-04-05 05:32] VITALS: BP 139/90; PULSE 63; RESP 19; TEMP 36.4; O2SAT 100; BMI 23.2
[2024-04-05 06:18] LABS: Lactic Acid 0.6 mmol/L (0.5-2.0)
[2024-04-05 06:32] LABS: MANUAL DIFF FLAG NO
[2024-04-05 06:33] LABS: Basophils Percent Auto 0.2 % (0-2); Eosinophils Percent Auto 0.9 % (0-4); Hematocrit 39.7 % (37.0-47.0); Hemoglobin 13.6 g/dl (12.0-16.0); Imm Gran Abs Auto 0.01 X10*3/uL (0.00-0.03); Imm Gran Pct Auto 0.2 % (0.0-0.4); Lymphocytes Absolute Auto 1.3 X10*3/uL (1.2-4.9); Lymphocytes Percent Auto 29.7 % (20-40); Mean Corpuscular HGB Conc 34.3 g/dl (31.0-35.0); Mean Corpuscular Hemoglobin 33.5 pg (27.0-33.0); Mean Corpuscular Volume 97.8 fL (80.0-98.0); Mean Platelet Volume 9.1 fL (9.4-12.3); Monocytes Absolute Auto 0.4 X10*3/uL (0.1-1.2); Monocytes Percent Auto 9.6 % (2-11); Neutrophils Absolute Auto 2.5 x10*3/uL (2.0-8.3); Neutrophils Percent Auto 59.4 % (45-73); Platelet Count 223 X10*3/uL (160-400); Red Blood Count 4.06 X10*6/uL (4.20-5.50); Red Cell Distribution Width 12.3 % (11.0-16.0); White Blood Count 4.3 X10*3/uL (4.8-10.8)
[2024-04-05 06:50] LABS: Alanine Aminotransferase 38 U/L (0-31); Albumin Level 4.5 g/dL (3.5-5.0); Alkaline Phosphatase 91 U/L (39-117); Anion Gap 16 (12-20); Aspartate Amino Transferase 39 U/L (5-31); Bilirubin Total 0.3 mg/dL (0.0-1.0); Blood Urea Nitrogen 10 mg/dL (9-16); Calcium 9.8 mg/dL (8.4-10.2); Carbon Dioxide 23 mmol/L (22-29); Chloride 105 mmol/L (96-108); Creatinine Clr Calc Pharmacy 83.6; Estimated Glomerular Filt Rate > 60; Glucose Random 99 mg/dL (60-115); Potassium 4.6 mmol/L (3.3-5.1); Sodium 139 mmol/L (135-145); Total Protein 7.5 g/dL (6.5-8.0)
[2024-04-05 08:36] VITALS: BP 125/87; PULSE 60; RESP 18; O2SAT 99
--- NOTE | 2024-04-05 09:03 | ED_ITS ---
HPI - General Adult General Chief complaint: Wound/Laceration Stated complaint: right hand pointer finger wound Time Seen by Provider: 04/05/24 09:02 Source: patient Mode of arrival: ambulatory Limitations: no limitations History of Present Illness ED Provider: Angel Felder NP HPI narrative: Patient is a 53-year-old female presenting to the emergency department for wound recheck of abscess which was incised and drained in this emergency department on 03/27. She states that she has completed her full course of doxycycline as prescribed. 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 She states she has been keeping it covered at home as well. Reports some serous drainage but denies any purulent drainage, denies increased redness or swelling. Denies fevers. complaint: Wound recheck Onset (ago): day(s) Location: right and upper extremity Treatments prior to arrival: other Related Data Previous Rx's ?Medication ?Instructions ?Recorded bisacodyl 5 mg tablet,delayed 10 mg (2 x 5 mg) PO ONCE 1 day #2 04/04/23 release (Dulcolax (bisacodyl)) tabs polyethylene glycol 3350 17 238 g PO ONCE 1 day #238 grams 04/04/23 gram/dose oral powder (Miralax) bisacodyl 5 mg tablet,delayed 10 mg (2 x 5 mg) PO ONCE 1 day #2 05/24/23 release (Dulcolax (bisacodyl)) tabs polyethylene glycol 3350 17 238 g PO ONCE 1 day #238 grams 05/24/23 gram/dose oral powder (Miralax) cyclobenzaprine 10 mg tablet 10 mg PO TID PRN muscle spasm 5 06/05/23 days #15 tabs naproxen 500 mg tablet 500 mg PO BID PRN pain 7 days #14 06/05/23 tabs prednisone 20 mg tablet 40 mg (2 x 20 mg) PO DAILY 5 days 06/05/23 #10 tabs doxycycline hyclate 100 mg tablet 100 mg PO BID #14 tabs 03/27/24 Allergies Allergy/AdvReac Type Severity Reaction Status Date / Time Sulfa (Sulfonamide Allergy Unknown rash Verified 04/05/24 05:35 Antibiotics) Review of Systems 2 Review of Systems: As per HPI. Yes all other systems are reviewed and are negative Constitutional: Constitutional: Reports as per HPI COUNT INCLUDES [facility] Past Medical History Medical History (Updated 04/05/24 @ 09:27 by Sonia Felder NP) Cervical cancer screening Breast cancer screening Neck pain Hypercholesterolemia Thyroid nodule Hypothyroid Psoriasis Surgical History Breast implant in situ H/O tubal ligation H/O: hysterectomy Family History Family History Father No problems noted. Mother No problems noted. Brother In good health Son In good health Daughter In good health Social History Social History (Updated 05/18/22 @ 08:54 by VENITA Deluna) Housing: Apartment Alcohol intake: current Patient Tobacco Use Status: Current everyday Tobacco user Tobacco use type: Cigarette Cigarettes Per Day: 5 e-Cigarette/Vaping Use: Never Used Second Hand Smoke Exposure: No Advance Directives: No Advance Directives Information Provided: Yes Do you have a plan to hurt others: No Plan service: No Current occupational status: employed Current occupational exposures/hazards: No Sexual orientation: Straight/Heterosexual Cognitive needs: No Hearing needs: No Vision needs: No Physical Exam ED Vital Signs: Vital Signs - 24 hr 04/05/24 05:32 04/05/24 08:36 Temperature 97.6 F Pulse Rate 63 60 Respiratory Rate 19 18 Blood Pressure 139/90 H 125/87 Pulse Oximetry 100 99 Oxygen Delivery Method Room Air Room Air BMI result Body Mass Index 23.2 Vital signs have been reviewed and appear to be correct. Blood pressure normal. Heart rate normal. Respiratory rate normal. Temperature normal. Oxygen saturation normal. Const General: cooperative, healthy appearing and no acute distress Orientation/consciousness: oriented to person, oriented to place, oriented to time and patient oriented x3 Limitations: no limitations HENMT Head: Yes normocephalic and Yes atraumatic Ears: external ears normal General nose exam: Normal external nose present Face and sinus: Yes face symmetric Mouth: oropharynx normal and moist mucous membranes Throat: Yes uvula midline Eyes Pupils: Equal, round and reactive pupils present Neck Neck: Yes normal visual inspection and Yes supple Resp Effort & Inspection: normal respiratory effort and able to speak in complete sentences Auscultation: clear to auscultation bilaterally Cardio Rate: regular rate Rhythm: regular rhythm Heart sounds: S1 normal heart sound present and S2 normal heart sound present Skin General skin exam: elasticity normal and turgor normal Neuro General: oriented to person, oriented to place, oriented to time, patient oriented x3, moves all extremities, no focal motor deficits and CN's II-XI intact bilaterally Cranial nerves: Yes Equal, round and reactive pupils present Cognition (Neuro): normal cognition Extrem General: Yes full ROM, Yes no pedal edema and Yes no calf tenderness Right upper extremity: Extremity exam: right hand Details: normal capillary refill, neuromotor exam normal, neurosensory exam normal, vascular exam Details: radial pulse present and normal capillary refill, normal ROM of fingers and other (Erythema over dorsal aspect of 2nd finger just distal to MCP joint with mildly macerated skin, no fluctuance, no drainage, no warmth) Psych Mental Status: mental status grossly normal Affect: normal affect Thought process: Normal thought process present Medical Decision Making Medical Decision Making [facility] Narrative: Patient is a 53-year-old female presenting to the emergency department for wound recheck of abscess which was incised and drained in this emergency department on 03/27. On exam patient is awake, A+Ox3, VS WNL, afebrile, normal neurological exam without focal deficits, physical exam findings as above. Given reported symptoms and physical exam findings, initial differential includes abscess, cellulitis. Do not suspect septic joint. Labs notable for no leukocytosis. Wound appears to be well healing, no signs of abscess or cellulitis. Discussed with patient that she should keep the wound open to air when possible at home. Also advised she soak her hand in warm water with salt several times daily. Discussed return precautions with patient at bedside. Patient verbalized understanding of and agreement with plan. Differential Diagnosis Differential Diagnoses: The differential diagnosis associated with the presentation includes As per [facility]. Lab Data [facility] Lab Attestation statement: I reviewed the patient's lab results. As per [facility]. 04/05/24 05:54 04/05/24 05:54 Labs: Lab Results 04/05/24 Range/Units 05:54 WBC 4.3 L (4.8-10.8) X10*3/uL RBC 4.06 L (4.20-5.50) X10*6/uL Hgb 13.6 (12.0-16.0) g/dl Hct 39.7 (37.0-47.0) % MCV 97.8 (80.0-98.0) fL MCH 33.5 H (27.0-33.0) pg MCHC 34.3 (31.0-35.0) g/dl RDW 12.3 (11.0-16.0) % Plt Count 223 (160-400) X10*3/uL MPV 9.1 L (9.4-12.3) fL Immature Gran % (Auto) 0.2 (0.0-0.4) % Neut % (Auto) 59.4 (45-73) % Lymph % (Auto) 29.7 (20-40) % Johnson % (Auto) 9.6 (2-11) % Eos % (Auto) 0.9 (0-4) % Baso % (Auto) 0.2 (0-2) % Lymph # (Auto) 1.3 (1.2-4.9) X10*3/uL Johnson # (Auto) 0.4 (0.1-1.2) X10*3/uL Eos # (Auto) 0.0 (0.0-0.4) X10*3/uL Baso # (Auto) 0.0 (0.0-0.2) X10*3/uL Abs Immat Gran (auto) 0.01 (0.00-0.03) X10*3/uL Absolute Neuts (auto) 2.5 (2.0-8.3) x10*3/uL Absolute Nucleated RBC 0.000 (0.0-0.012) X10*3/uL Nucleated RBC % (auto) 0.0 (0.0-0.2) /100WBC Sodium 139 (135-145) mmol/L Potassium 4.6 (3.3-5.1) mmol/L Chloride 105 (96-108) mmol/L Carbon Dioxide 23 (22-29) mmol/L Anion Gap 16 (12-20) BUN 10 (9-16) mg/dL Creatinine 0.68 (0.5-1.4) mg/dL Estim Creat Clear Calc 83.6 Estimated GFR > 60 Random Glucose 99 (60-115) mg/dL Lactic Acid 0.6 (0.5-2.0) mmol/L Calcium 9.8 (8.4-10.2) mg/dL Total Bilirubin 0.3 (0.0-1.0) mg/dL AST 39 H (5-31) U/L ALT 38 H (0-31) U/L Alkaline Phosphatase 91 (39-117) U/L Total Protein 7.5 (6.5-8.0) g/dL Albumin 4.5 (3.5-5.0) g/dL External Record Review External record reviewed: Inpatient record, Office record and Outpatient record Discharge Plan Discharge Clinical Impression: Wound check, abscess Patient Disposition: Home, Self-Care Instructions: Warm Compress or Soak (ED) Additional Instructions: You were evaluated in the emergency department today for a recheck of a wound to your finger. The wound appears to be healing appropriately. We recommend that you soak the hand in warm water with salt for 10-15 minutes at a time several times daily. Keep the wound open to air whenever possible but keep covered while at work. Return to the emergency department if you develop increasing redness, redness streaking up your hand, swelling, thick yellow discharge, fevers or any other concerning symptoms. Follow-up with your primary care provider. Prescriptions: No Action polyethylene glycol 3350 [Miralax] 17 gram/dose powder 238 g PO ONCE 1 Days Qty: 238 0RF Rx Instructions: Take as directed by mouth the day before your procedure. bisacodyl [Dulcolax (bisacodyl)] 5 mg tablet,delayed release (DR/EC) 10 mg PO ONCE 1 Days Qty: 2 0RF Rx Instructions: take at noon the day before colonoscopy doxycycline hyclate 100 mg tablet 100 mg PO BID Qty: 14 0RF prednisone 20 mg tablet 40 mg PO DAILY 5 Days Qty: 10 0RF naproxen 500 mg tablet 500 mg PO BID PRN (Reason: pain) 7 Days Qty: 14 0RF cyclobenzaprine 10 mg tablet 10 mg PO TID PRN (Reason: muscle spasm) 5 Days Qty: 15 0RF Rx Instructions: side effect is drowsiness. Do not take at work or while driving. bisacodyl [Dulcolax (bisacodyl)] 5 mg tablet,delayed release (DR/EC) 10 mg PO ONCE 1 Days Qty: 2 0RF Rx Instructions: take orally as directed prior to colonoscopy polyethylene glycol 3350 [Miralax] 17 gram/dose powder 238 g PO ONCE 1 Days Qty: 238 0RF Rx Instructions: take orally as directed prior to colonoscopy Print Language: Belgian
[2024-04-05 09:42] VITALS: BP 125/87; PULSE 60; RESP 18; TEMP 36.4; O2SAT 99
== END 2024-04-05 09:43 | disposition home or self-care (01) ==
PROVIDERS: Emergency Provider Emergency Medicine; PCP Internal Medicine
DX: S60.94 Unspecified superficial injury of other fingers (principal); X58.XXXD Exposure to other specified factors, subsequent encounter; Z48.00 Encounter for change or removal of nonsurgical wound dressing
CPT/HCPCS: 36415; 80053; 83605; 85025; 87040; 99283

== ENCOUNTER 2024-11-30 21:56 | Emergency (ER) | payer OTHER, SELFPAY ==
--- NOTE | ~2024-11-30 | CT_ITS ---
CLINICAL HISTORY: atraumatic rib fx L8, lytic?? CT chest without contrast Comparison: CR - XR RIBS LT MIN 3V W CXR1V - 11/30/24 22:12 EST Findings: The heart size is normal. The visualized thyroid and mediastinum are unremarkable. No consolidation or effusion. The visualized upper abdomen is unremarkable. Previously visualized left rib fractures not visualized on this exam. Minimally displaced left rib fracture identified on prior radiographs is not visualized on this exam. IMPRESSION: 1. Unremarkable chest CT. This document has been electronically signed by: Rishabh Youngblood MD, PHD on 12/01/2024 02:54:13
--- NOTE | ~2024-11-30 | XR_ITS ---
CLINICAL HISTORY: left lower rib pain 4 view, chest and left ribs Comparison: None Findings: Minimally displaced fracture of anterior left 8th rib. The visualized lungs are normal. IMPRESSION: 1. Minimally displaced fracture left anterior 8th rib This document has been electronically signed by: Rishabh Youngblood MD, PHD on 11/30/2024 23:09:44
[2024-11-30 21:59] VITALS: BP 126/77; PULSE 70; RESP 18; TEMP 36.4; O2SAT 100; BMI 23.2
[2024-12-01 01:18] VITALS: BP 115/69; PULSE 62; RESP 14; TEMP 36.7; O2SAT 99
--- NOTE | 2024-12-01 02:11 | PC.NURSE ---
Pt off floor to CT.
--- NOTE | 2024-12-01 03:14 | ED.GENADULT ---
HPI - General Adult General Chief complaint: General Medical Stated complaint: L rib pain Time Seen by Provider: 12/01/24 01:27 Source: patient Limitations: no limitations History of Present Illness ED Provider: Khalida Barker PA-C HPI narrative: 54-year-old female with a history of hyperlipidemia presents with left chest wall pain x1 week. 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 She woke one morning last week with left-sided chest wall pain. Over the course of the week, the pain has progressed. Patient denies known preceding heavy lifting injury, fall or other trauma. Denies recent cough or cold symptoms. Denies abdominal pain, nausea, vomiting or fever. Related Data Previous Rx's ?Medication ?Instructions ?Recorded bisacodyl 5 mg tablet,delayed 10 mg (2 x 5 mg) PO ONCE 1 day #2 04/04/23 release (Dulcolax (bisacodyl)) tabs polyethylene glycol 3350 17 238 g PO ONCE 1 day #238 grams 04/04/23 gram/dose oral powder (Miralax) bisacodyl 5 mg tablet,delayed 10 mg (2 x 5 mg) PO ONCE 1 day #2 05/24/23 release (Dulcolax (bisacodyl)) tabs polyethylene glycol 3350 17 238 g PO ONCE 1 day #238 grams 05/24/23 gram/dose oral powder (Miralax) cyclobenzaprine 10 mg tablet 10 mg PO TID PRN muscle spasm 5 06/05/23 days #15 tabs naproxen 500 mg tablet 500 mg PO BID PRN pain 7 days #14 06/05/23 tabs prednisone 20 mg tablet 40 mg (2 x 20 mg) PO DAILY 5 days 06/05/23 #10 tabs doxycycline hyclate 100 mg tablet 100 mg PO BID #14 tabs 03/27/24 acetaminophen 500 mg tablet 1,000 mg (2 x 500 mg) PO Q8H PRN 12/01/24 (Acetaminophen Extra Strength) fever or pain #30 tabs ibuprofen 600 mg tablet 600 mg PO Q6H PRN pain #20 tabs 12/01/24 methocarbamol 750 mg tablet 750 mg PO Q12H PRN pain, moderate 12/01/24 #10 tabs Allergies Allergy/AdvReac Type Severity Reaction Status Date / Time Sulfa (Sulfonamide Allergy Unknown rash Verified 11/30/24 22:01 Antibiotics) Review of Systems Review of Systems: Yes all other systems are reviewed and are negative Constitutional: Constitutional: Denies fatigue and Denies fever(s) Cardiovascular: Cardiovascular: Reports chest pain and Denies dyspnea Respiratory: Respiratory: Denies cough, Denies dyspnea and Denies wheezing Gastrointestinal: Gastrointestinal: Denies abdominal pain, Denies nausea and Denies vomiting Endocrine: Endocrine: Denies fatigue Allergic/Immunologic: Allergic/Immunologic: Denies wheezing PMFSH Past Medical History Attestation statement: The following information was validated with the patient. Medical History (Updated 12/01/24 @ 03:39 by MICHAEL Collier) Cervical cancer screening Breast cancer screening Neck pain Hypercholesterolemia Thyroid nodule Hypothyroid Psoriasis Surgical History Breast implant in situ H/O tubal ligation H/O: hysterectomy Family History Family History Father No problems noted. Mother No problems noted. Brother In good health Son In good health Daughter In good health Social History Social History (Updated 05/18/22 @ 08:54 by VENITA Deluna) Housing: Apartment Alcohol intake: current Patient Tobacco Use Status: Current everyday Tobacco user Tobacco use type: Cigarette Cigarettes Per Day: 5 Smoked in Last 30 Days: No e-Cigarette/Vaping Use: Never Used Second Hand Smoke Exposure: No Use of substances other than those prescribed or required for medical reasons: No Advance Directives: No Advance Directives Information Provided: Yes Do you have a plan to hurt others: No Plan service: No Current occupational status: employed Current occupational exposures/hazards: No Sexual orientation: Straight/Heterosexual Cognitive needs: No Hearing needs: No Vision needs: No Physical Exam ED Vital Signs: Vital Signs - 24 hr 11/30/24 21:59 12/01/24 01:18 Temperature 97.6 F 98.1 F Pulse Rate 70 62 Respiratory Rate 18 14 Blood Pressure 126/77 115/69 Pulse Oximetry 100 99 Oxygen Delivery Method Room Air Room Air BMI result Body Mass Index 23.2 Const Other: Alert, well-appearing Orientation/consciousness: patient oriented x3 Chest Other: No deformity no swelling no ecchymosis noted over left lateral chest wall Resp Other: Nonlabored respirations, lungs clear to auscultation Cardio Other: Normal peripheral perfusion Skin Other: Warm dry no rash Neuro General: patient oriented x3, no focal motor deficits and CN's II-XI intact bilaterally Psych Other: Calm cooperative Medical Decision Making Medical Decision Making MDM Narrative: 54-year-old female with a history of hyperlipidemia presents with left chest wall pain x1 week. 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 She woke one morning last week with left-sided chest wall pain. Over the course of the week, the pain has progressed. Patient denies known preceding heavy lifting injury, fall or other trauma. Denies recent cough or cold symptoms. Denies abdominal pain, nausea, vomiting or fever. No relevant chronic issues History: Per patient I have considered the following differential diagnoses: Atypical presentation for ACS, chest wall strain, pancreatitis, pneumonia, costochondritis Plan: Screening labs and a chest x-ray were obtained from triage, the patient has an atraumatic rib fracture. Perhaps she has undiagnosed osteoporosis/ osteopenia, perhaps there is underlying malignancy and this is a lytic lesion, this is an odd presentation. I am obtaining a CT of the chest. Ordering incentive spirometry. I will discuss pain management with the . Thus far she has been using ibuprofen to manage her discomfort. Thought about pancreatitis given left-sided symptoms, however she has no abdominal pain no palpable pain on exam and she has no active GI symptoms. Thought about pneumonia, however she has been afebrile with no cough. Thought about costochondritis, however she has not had preceding viral syndrome. She does perform a great deal of heavy lifting, however when she went to bed the night before the onset of her symptoms, there was no musculoskeletal strain involved from the previous work day. I have independently reviewed the following tests: Chest x-ray:4 view, chest and left ribs Comparison: None Findings: Minimally displaced fracture of anterior left 8th rib. The visualized lungs are normal. IMPRESSION: 1. Minimally displaced fracture left anterior 8th rib This document has been electronically signed by: Rishabh Youngblood MD, PHD on 11/30/2024 23:09:44 CT chest:Comparison: CR - XR RIBS LT MIN 3V W CXR1V - 11/30/24 22:12 EST Findings: The heart size is normal. The visualized thyroid and mediastinum are unremarkable. No consolidation or effusion. The visualized upper abdomen is unremarkable. Previously visualized left rib fractures not visualized on this exam. Minimally displaced left rib fracture identified on prior radiographs is not visualized on this exam. IMPRESSION: 1. Unremarkable chest CT. This document has been electronically signed by: Rishabh Youngblood MD, PHD on 12/01/2024 02:54:13 Discharge Plan Discharge Clinical Impression: Strain of chest wall Patient Disposition: Home, Self-Care Instructions: Muscle Strain (ED), Chest Wall Pain (ED) Additional Instructions: You have chest wall strain, there are no rib fractures, we have verified this with the CT scan. See home care instructions. While working you can use ibuprofen 600 mg taken every 6 hours with food, alternated with a 1000 mg of Tylenol. At home use the methocarbamol, this is a muscle relaxant, it will help you sleep. Follow up with your primary care provider as needed. Prescriptions: New ibuprofen 600 mg tablet 600 mg PO Q6H PRN (Reason: pain) Qty: 20 0RF acetaminophen [Acetaminophen Extra Strength] 500 mg tablet 1,000 mg PO Q8H PRN (Reason: fever or pain) Qty: 30 0RF methocarbamol 750 mg tablet 750 mg PO Q12H PRN (Reason: pain, moderate) Qty: 10 0RF No Action polyethylene glycol 3350 [Miralax] 17 gram/dose powder 238 g PO ONCE 1 Days Qty: 238 0RF Rx Instructions: Take as directed by mouth the day before your procedure. bisacodyl [Dulcolax (bisacodyl)] 5 mg tablet,delayed release (DR/EC) 10 mg PO ONCE 1 Days Qty: 2 0RF Rx Instructions: take at noon the day before colonoscopy doxycycline hyclate 100 mg tablet 100 mg PO BID Qty: 14 0RF prednisone 20 mg tablet 40 mg PO DAILY 5 Days Qty: 10 0RF naproxen 500 mg tablet 500 mg PO BID PRN (Reason: pain) 7 Days Qty: 14 0RF cyclobenzaprine 10 mg tablet 10 mg PO TID PRN (Reason: muscle spasm) 5 Days Qty: 15 0RF Rx Instructions: side effect is drowsiness. Do not take at work or while driving. bisacodyl [Dulcolax (bisacodyl)] 5 mg tablet,delayed release (DR/EC) 10 mg PO ONCE 1 Days Qty: 2 0RF Rx Instructions: take orally as directed prior to colonoscopy polyethylene glycol 3350 [Miralax] 17 gram/dose powder 238 g PO ONCE 1 Days Qty: 238 0RF Rx Instructions: take orally as directed prior to colonoscopy Stand Alone Forms: Work/School Release Print Language: Turkmen
[2024-12-01 04:03] VITALS: BP 119/78; PULSE 58; RESP 12; TEMP 36.5; O2SAT 100
[2024-12-01 04:08] VITALS: BP 119/78; PULSE 58; RESP 12; TEMP 36.5; O2SAT 100
== END 2024-12-01 04:08 | disposition home or self-care (01) ==
PROVIDERS: Emergency Provider Emergency Medicine; PCP Internal Medicine
DX: S29.011A Strain of muscle and tendon of front wall of thorax, initial encounter (principal); X50.9XXA Other and unspecified overexertion or strenuous movements or postures, initial encounter; R07.9 Chest pain, unspecified; Y93.F9 Activity, other caregiving; Y92.129 Unspecified place in nursing home as the place of occurrence of the external cause; Y99.0 Civilian activity done for income or pay
CPT/HCPCS: 71101; 71250; 94010; 99284

== ENCOUNTER → 2024-11-30 22:06 | Outpatient (BNV) | payer OTHER, SELFPAY | PROVIDERS: PCP Internal Medicine; Visit Provider General Practice | DX: R07.82 Intercostal pain (principal) | CPT/HCPCS: 71101 ==

== ENCOUNTER → 2024-12-01 01:52 | Outpatient (BNV) | payer OTHER, SELFPAY | PROVIDERS: Emergency Provider Emergency Medicine; PCP Internal Medicine; Visit Provider General Practice | DX: R07.82 Intercostal pain (principal) | CPT/HCPCS: 71250 ==

== ENCOUNTER 2025-06-04 09:15 | Outpatient (REF) | payer OTHER, SELFPAY ==
[2025-06-04 15:01] LABS: Bacterial Vaginosis PCR NEGATIVE (Negative); Candida Group PCR NOT DETECTED (Not Detect); Candida glab krusei PCR NOT DETECTED (Not Detect); Trichomonas vaginalis PCR NOT DETECTED (Not Detect)
[2025-06-04 15:33] LABS: CT PCR NOT DETECTED (Not Detect.); NG PCR NOT DETECTED (Not Detect.)
== END 2025-06-04 09:16 | disposition home or self-care (01) ==
LOC: HO.LNP 09:15
PROVIDERS: PCP Internal Medicine; Visit Provider Advanced Practice Midwife
DX: Z01.419 Encounter for gynecological examination (general) (routine) without abnormal findings (principal); Z11.3 Encounter for screening for infections with a predominantly sexual mode of transmission; Z90.710 Acquired absence of both cervix and uterus; Z98.51 Tubal ligation status; Z79.899 Other long term (current) drug therapy
CPT/HCPCS: 81515; 87491; 87591; 99386

== ENCOUNTER 2025-06-04 09:15 | Outpatient (AMB) | payer OTHER, SELFPAY ==
--- NOTE | 2025-06-04 09:25 | MHC.OFFVIS ---
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: No Information Interpreted: clinical only Accompanied by: Self / Same As Patient Allergies Sulfa (Sulfonamide Antibiotics) Allergy (Unknown, Verified 06/04/25 09:27) rash Medication List - Last Reconciled 06/04/25 by Sharon Tejeda LPN acetaminophen (Acetaminophen Extra Strength) 1,000 mg (2 x 500 mg) PO Q8H PRN atorvastatin (Lipitor) 20 mg PO BEDTIME ibuprofen 600 mg PO Q6H PRN naproxen 500 mg PO BID PRN 7 days Is last menstrual period known: No Post menopausal: No Patient : No Followed by:: Sharon Tejeda lpn Do you need a note to return to daycare/school/sports/work: No HPI Comments Details: Patient is a postmenopausal woman presenting for her new patient annual armature winder repair examination. She is doing well with armature winder repair concerns. Currently sexually active. Denies any vaginal dryness or irritation. STI testing offered; she accepts, declines bloodwork. Attempting to eat a healthy diet with calcium and vitamin D and stays active with exercise. Last pap smear; 2020, negative. History of supracervical hysterectomy-HMB, fibroids. Last mammogram; 03/2024. Booked for June. Colonoscopy is UTD. Denies any family history of breast, ovarian or colon cancer. [facility] Medical History Cervical cancer screening Breast cancer screening Neck pain Hypercholesterolemia Thyroid nodule Hypothyroid Psoriasis Surgical History Breast implant in situ H/O tubal ligation H/O: hysterectomy Family History Father No problems noted. Mother No problems noted. Brother In good health Son In good health Daughter In good health Social History Housing: Apartment Alcohol intake: current Patient Tobacco Use Status: Current everyday Tobacco user Tobacco use type: Cigarette Cigarettes Per Day: 5 e-Cigarette/Vaping Use: Never Used Second Hand Smoke Exposure: No service: No Current occupational status: employed Current occupational exposures/hazards: No Sexual orientation: Straight/Heterosexual Cognitive needs: No Hearing needs: No Vision needs: No Female Reproductive History Menstrual Age of Menarche: 14 Date of last menstrual period: 06/04/10 Menopause type: surgical Total pregnancies: 3 Full term: 3 Number of Living Children: 3 Date of last pap smear: 12/13/20 Date of Mammogram: 03/27/1924 History of abnormal mammogram: No Review of Systems Const All systems reviewed & are unremarkable except as noted in HPI and below Reports as per HPI Eyes Reports no additional complaints ENT Reports no additional complaints Card Reports no additional complaints Resp Reports no additional complaints GI Reports as per HPI and Reports no additional complaints Reports as per HPI Musc Reports no additional complaints Skin/Breast Reports as per HPI Neuro Reports no additional complaints Psych Reports no additional complaints Endo Reports no additional complaints Jose Armando/Lymph Reports no additional complaints Aller/Immun Reports no additional complaints Physical Exam Vital Signs: Last Vital Signs BP 104/72 06/04/25 09:40 BMI result Body Mass Index 22.8 Const General: cooperative, healthy appearing, no acute distress, well developed and alert Orientation/consciousness: patient oriented x3 HEENT Head: Yes normal to inspection Eyes General: appearance normal, both eyes and all related structures Neck Neck: Yes normal visual inspection Thyroid: Thyroid normal Chest Other: barbara implants Chest palpation & inspection: normal inspection of the chest and other (no puckering, dimpling, peau de orange, retraction, discharge, masses) Breast/axilla inspection: normal inspection of the breasts Breast/axilla palpation: normal palpation of the breasts Resp Effort & Inspection: normal respiratory effort GI Inspection: Yes normal to inspection Palpation (GI): Soft to palpation Rectal Exam - Female: deferred General: Yes bladder normal to palpation External Female Exam: normal external appearance and normal appearance of the urethra Speculum Exam - Vagina: normal appearance of the vagina, normal palpation and normal vaginal discharge Speculum Exam - Cervix: normal appearance of the cervix and normal palpation Bimanual exam- vagina & uterus: normal bimanual exam, normal palpation, bladder normal to palpation, normal palpation and uterus absent Bimanual Exam- Adnexa, other: no masses Skin General skin exam: no rashes or lesions noted Rashes: no rashes Neuro General: patient oriented x3 Cognition (Neuro): normal cognition Extrem General: Yes normal to inspection Psych Attitude: cooperative Thought process: Normal thought process present Assessment & Plan Assessment & Plan (1) Encounter for well woman exam with routine gynecological exam: Code(s): Z01.419 - Encounter for gynecological examination (general) (routine) without abnormal findings Category: Medical Plan Discussed: Current recommendations for pap smears per ASCCP guidelines. Breast awareness, periodic self breast exams and yearly mammogram. Maintain a healthy lifestyle, well balanced diet including Calcium 1,200 mg and Vitamin D 600 IU daily, and routine exercise. Contact the office with any postmenopausal bleeding. Patient verbalizes understanding and agrees to the plan of care. She was given opportunity to ask questions and all questions were answered to the best of my ability. RTO in 1 year for annual armature winder repair exam. This note is constructed using voice recognition software. While every effort has been made to ensure accuracy, harvest contractor errors may have been included. Orders: Orders Bacterial Vaginosis Panel Today Z11.3 - Encounter for screening for infections with a predominantly sexual mode of transmission CT NG by PCR Vag/Cerv Today Z11.3 - Encounter for screening for infections with a predominantly sexual mode of transmission Coding Level of Care Code New Pt Prev Care 40-64y(16747) Diagnoses Encounter for well woman exam with routine gynecological exam Z01.419
[2025-06-04 09:40] VITALS: BP 104/72; BMI 22.8
== END 2025-06-04 10:08 | disposition home or self-care (01) ==
LOC: HO.HWS 09:15
PROVIDERS: PCP Internal Medicine; Visit Provider Advanced Practice Midwife
DX: Z01.419 Encounter for gynecological examination (general) (routine) without abnormal findings (principal)
CPT/HCPCS: 99386; 99459

== ENCOUNTER 2025-07-10 10:29 | Outpatient (AMB) | payer OTHER, SELFPAY ==
--- NOTE | 2025-07-10 10:31 | A.OFFPC_ITS ---
Vital Signs 07/10/25 10:37 Height 5 ft 3.78 in Weight 135 lb 4 oz BMI 23.4 BP 110/61 Blood Pressure Location Lt brachial Position Sitting Respiration 16 Pulse 70 Pulse Source Pulse Oximeter Temp 97.7 F Temp Source Temporal Artery Scan Pulse Oximetry (%) 99 Oxygen Delivery Method Room Air Intake Visit Reasons: establish care [facility] Consultant Required: No Accompanied by: Self / Same As Patient Allergies Sulfa (Sulfonamide Antibiotics) Allergy (Unknown, Verified 07/10/25 12:53) rash Medication List - Last Reconciled 07/10/25 by Velvet Hamilton PA-C atorvastatin (Lipitor) 20 mg PO BEDTIME calcipotriene 0.005% 1 appl topical BID cyclobenzaprine 10 mg PO Q8H meloxicam 15 mg PO DAILY tazarotene 0.1% 1 appl topical DAILY Tobacco use date assessed: 07/10/25 Dental Screening Dental Screen Date: 07/10/25 Did you have a dental visit in the last 12 months?: Yes Did you have a dental problem in the last 6 months where you did not have access to dental care?: No Was dental information given to patient?: Patient has dentist HPI establish care HPI Details The patient is a 54-year-old female presenting for a new patient appointment and management of chronic conditions. She has a history of hyperlipidemia for which she is on atorvastatin 20 mg at bedtime. Her cholesterol levels were not checked during the last blood work, and she has been on this medication for an extended period. The patient also has psoriasis, primarily affecting her forearms, for which she uses two ointments daily. She reports that it took a long time to find the right treatment, but her condition is currently well-managed. She underwent a colonoscopy on 05/30/2023, which revealed internal hemorrhoids. The recommended management includes a high fiber diet, avoiding straining, and using Epsom salts and Sitz baths. The patient has a history of thyroid nodules, with an ultrasound in 2022 showing a TR4 nodule on the right lobe. She was previously on thyroid medication but is not currently taking it. A repeat thyroid ultrasound is planned for surveillance. She reports sciatica with intermittent pain radiating from the hip down the leg, exacerbated by certain positions. A muscle relaxer and meloxicam have been prescribed for management. The patient has a history of cervical spondylosis and carpal tunnel syndrome, with symptoms of numbness in the fingertips, especially when driving or using a phone. She was diagnosed with cervical spondylosis and carpal tunnel syndrome following nerve conduction studies. Physical therapy was recommended, but she has not pursued it recently. 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[employer]) - Exercise: Reports intermittent physica l activity due to sciatica - Substance Use: Consumes alcohol, which may affect liver enzymes - Vision: Uses reading glasses (cheaters ) for near vision - Dental Care: Visits the dentist every six months [facility] Medical History (Updated 07/10/25 @ 13:01 by Velvet Hamilton PA-C) Carpal tunnel syndrome Cervical spondylosis Sciatica Internal hemorrhoids H/O mammogram (~03/25/24) Cervical cancer screening Breast cancer screening Neck pain Hypercholesterolemia Thyroid nodule Hypothyroid Psoriasis Surgical History H/O colonoscopy (~05/30/23) Breast implant in situ H/O tubal ligation H/O: hysterectomy Family History Father No problems noted. Mother No problems noted. Brother In good health Son In good health Daughter In good health Social History Housing: Apartment Alcohol intake: current Alcohol intake frequency: 3 or more drinks per day Patient Tobacco Use Status: Current everyday Tobacco user Tobacco use type: Cigarette Cigarettes Per Day: 5 e-Cigarette/Vaping Use: Never Used Second Hand Smoke Exposure: No service: No Current occupational status: employed Current occupational exposures/hazards: No Sexual orientation: Straight/Heterosexual Cognitive needs: No Hearing needs: No Vision needs: Yes (cheaters) Female Reproductive History Menstrual Age of Menarche: 14 Questionnaire PHQ-9 Over the last 2 weeks, how often have you been bothered by any of the following problems? 1. Little interest or pleasure in doing things: not at all 2. Feeling down, depressed, or hopeless: not at all 3. Trouble falling or staying asleep, or sleeping too much: not at all 4. Feeling tired or having little energy: not at all 5. Poor appetite or overeating: not at all 6. Feeling bad about yourself - or that you are a failure or have let yourself or your family down: not at all 7. Trouble concentrating on things, such as reading the newspaper or watching television: not at all 8. Moving or speaking so slowly that other people could have noticed. Or the opposite - being so fidgety or restless that you have been moving around a lot more than usual: not at all 9. Thoughts that you would be better off or of hurting yourself in some way: not at all Total score: 0 Depression Screening Interpretation: Negative Depression Screening Done: Yes 67819 - PHQ-9 Billing: Yes Source: Developed by Drs. Hardik Iverson, Gayle Soriano, Jesus Briggs and colleagues, with an educational nelida from [employer]. Thrive Questionnaire Date Thrive assessed: 07/10/25 I am a: Patient What is your living situation today?: I have a steady place to live Within the past 12 months, did the food you bought not last and you didn't have the money to get more?: Never true Within the past 12 months, did you worry whether your food would run out before you got money to buy more?: Never true Do you have trouble paying for medicines?: No Do you have trouble getting transportation to medical appointments?: No Do you have trouble paying your heating and electricity bill?: No Do you have trouble taking care of your child, family member or friend?: No Do you have trouble with day-to-day activities such as bathing, preparing meals, shopping, managing finances, etc.?: No Are you currently unemployed and looking for a job?: No Are you interested in more education?: No Please select the resources that you would like help with: None Currently or been in a relationship where the following occur: No concerns reported THRIVE Score: 0 AUDIT C Alcohol Use Questionnaire (AUDIT-C) 1. How often do you have a drink containing alcohol?: 4 or more times a week 2. How many drinks containing alcohol do you have on a typical day when you are drinking?: 3 or 4 3. How often do you have six or more drinks on one occasion?: Never Total Score: 5 Score Reviewed/Action Taken: No CHANDRA-7 AMB Questionnaire CHANDRA-7 Date CHANDRA - 7 assessed: 07/10/25 Feeling nervous, anxious, or on edge: 0 = Not at all Not being able to stop or control worryin = Not at all Worrying too much about different things: 0 = Not at all Trouble relaxin = Not at all Being so restless that it is hard to sit still: 0 = Not at all Becoming easily annoyed or irritable: 0 = Not at all Feeling afraid as if something awful might happen: 0 = Not at all Total CHANDRA-7 score (0-4 normal; 5-9 mild; 10-14 moderate; 15-21 severe): 0 Source: Developed by Drs. Hardik Iverson, Gayle Soriano, Jesus Briggs and colleagues, with an educational nelida from [employer]. CHANDRA-7 Assessment Billing CHANDRA-7 Assessment Tool: CHANDRA-7 Assessment 57103 Review of Systems Const Details: - Cardiovascular: Denies chest pain, orthopnea, or syncope - Respiratory: Denies dyspnea or cough - Gastrointestinal: Reports internal hemorrhoids; denies abdominal pain - Neurological: Reports intermittent numbness in fingertips; denies headaches or dizziness - Musculoskeletal: Reports sciatica with pain radiating from hip to leg - Endocrine: Denies recent thyroid issues but has a history of thyroid nodules - Hematologic: Denies easy bruising or bleeding All systems reviewed & are unremarkable except as noted in HPI and below Physical exam (Primary Care) Vital Signs: Last Vital Signs Temp 97.7 F 07/10/25 10:37 Pulse 70 07/10/25 10:37 Resp 16 07/10/25 10:37 BP 110/61 07/10/25 10:37 Pulse Ox 99 07/10/25 10:37 Oxygen Delivery Method Room Air 07/10/25 10:37 Care Plan Goal for BP management: <140/90 at Goal BMI result Body Mass Index 23.4 Tobacco/Smoking Status: Tobacco use Status Tobacco use date assessed 07/10/25 07/10/25 10:36 Patient Tobacco Use Status Current everyday Tobacco 07/10/25 10:43 Tobacco use type Cigarette 07/10/25 10:43 e-Cigarette/Vaping Use Never Used 07/10/25 10:43 PHQ-9: PHQ-9 Score PHQ-9: Total score 0 07/10/25 10:36 Depression Screening Interpretation: Negative Thrive Assessment: Date of Thrive Assessment Date Thrive assessed 07/10/25 07/10/25 10:36 Currently or been in a relationship where the following occur: No concerns reported Const Other: Appearance: Alert. Oriented X3. No acute distress. Head: Normal external exam. Normocephalic. Atraumatic. Eyes: Pupils are equal, round, and reactive to light. Extraocular movements intact. Conjunctiva and sclera normal. Eyelids normal. Ears: External auditory canal normal. Tympanic membranes normal. Throat: Pharynx normal. Uvula midline. Moist mucous membranes. Neck: Normal inspection. Neck supple. Full range of motion. No adenopathy. Thyroid Normal. No meningeal signs. No neck mass noted. Cardiovascular: Normal heart rate and rhythm. Heart sound normal. No murmurs noted. Pulses normal throughout. Respiratory: No respiratory distress. Painless inspiration. Breath sounds normal. No wheezes/rales/rhonchi noted. Chest nontender. No accessory muscle usage noted or decreased air movement noted. Abdomen: Soft and nontender. Bowel sounds normal in all 4 quadrants. No distention noted. No organomegaly noted. No visible injury noted. Back: Patient with tenderness to palpation to right buttock/right hip/IT joint. No mid lumbar tenderness step-offs or deformities. No signs of infection, lesions or induration noted. No costovertebral angle tenderness. Full range of motion noted. Skin: Skin warm and dry. Normal skin color. Normal skin turgor. No rashes/lesions/lacerations noted. Extremities: No lower extremity edema. Extremities exhibit normal range of motion. Neuro: Oriented X 3. No motor deficit. No sensory deficit. Reflexes normal. Results Reviewed Results Reviewed: - Labs: Chronically low white blood cell count since 2021; normal platelet count; mildly elevated liver enzymes - Imaging: Thyroid ultrasound in 2022 showed a TR4 nodule on the right lobe - Procedures: Colonoscopy on 05/30/2023 revealed internal hemorrhoids Coding Level of Care Code Est Pt Level 4 (46606) Complex EM visit Add On G2211 Diagnoses Hypercholesterolemia E78.00 Psoriasis L40.9 Internal hemorrhoids K64.8 Thyroid nodule E04.1 Sciatica M54.30 Cervical spondylosis M47.812 Carpal tunnel syndrome G56.00 Additional Codes PHQ-9 - 20181 - PHQ-9 Billing: Yes ([id number]) CHANDRA-7 Assessment Billing - CHANDRA-7 Assessment Tool: CHANDRA-7 Assessment 95482 ([id number]) Assessment & Plan Assessment & Plan (1) Hypercholesterolemia: Code(s): E78.00 - Pure hypercholesterolemia, unspecified Category: Medical Plan: The patient is currently on atorvastatin 20 mg at bedtime for hyperlipidemia. Cholesterol levels were not checked during the last blood work, so a lipid panel will be ordered to assess current status. (2) Psoriasis: Comment: Biopsy May 2022 Code(s): L40.9 - Psoriasis, unspecified Category: Medical Plan: The patient uses two ointments daily for psoriasis on her forearms, which is currently well-managed. Condition is chronic and stable will continue to monitor. (3) Internal hemorrhoids: Code(s): K64.8 - Other hemorrhoids Category: Medical Plan: Management includes a high fiber diet, avoiding straining, and using Epsom salts and Sitz baths. A repeat colonoscopy is recommended in 10 years unless symptoms worsen. (4) Thyroid nodule: Code(s): E04.1 - Nontoxic single thyroid nodule Category: Medical Plan: The patient has a history of thyroid nodules with a TR4 nodule on the right lobe. A repeat thyroid ultrasound is planned for surveillance, and endocrinology referral may be considered if the nodule size increases. (5) Sciatica: Code(s): M54.30 - Sciatica, unspecified side Category: Medical Plan: The patient reports intermittent sciatica pain radiating from the hip down the leg. A muscle relaxer and meloxicam have been prescribed for management, and physical therapy is an option if symptoms persist. (6) Cervical spondylosis: Code(s): M47.812 - Spondylosis without myelopathy or radiculopathy, cervical region Category: Medical Plan: The patient has a history of cervical spondylosis with symptoms of numbness in the fingertips. Physical therapy was recommended, and a referral to a specialist may be considered if symptoms persist. (7) Carpal tunnel syndrome: Code(s): G56.00 - Carpal tunnel syndrome, unspecified upper limb Category: Medical Plan: The patient was diagnosed with carpal tunnel syndrome following nerve conduction studies. Wrist splints were previously recommended, and further evaluation may be needed if symptoms continue. Plan Plan Patient was informed and verbally consented to the use of an ambient scribe for clinic note documentation during this visit. 1. Hyperlipidemia The patient is currently on atorvastatin 20 mg at bedtime for hyperlipidemia. Cholesterol levels were not checked during the last blood work, so a lipid panel will be ordered to assess current status. 2. Psoriasis The patient uses two ointments daily for psoriasis on her forearms, which is currently well-managed. 3. Internal Hemorrhoids Management includes a high fiber diet, avoiding straining, and using Epsom salts and Sitz baths. A repeat colonoscopy is recommended in 10 years unless symptoms worsen. 4. Thyroid Nodules The patient has a history of thyroid nodules with a TR4 nodule on the right lobe. A repeat thyroid ultrasound is planned for surveillance, and endocrinology referral may be considered if the nodule size increases. 5. Sciatica The patient reports intermittent sciatica pain radiating from the hip down the leg. A muscle relaxer and meloxicam have been prescribed for management, and physical therapy is an option if symptoms persist. 6. Cervical Spondylosis The patient has a history of cervical spondylosis with symptoms of numbness in the fingertips. Physical therapy was recommended, and a referral to a specialist may be considered if symptoms persist. 7. Carpal Tunnel Syndrome The patient was diagnosed with carpal tunnel syndrome following nerve conduction studies. Wrist splints were previously recommended, and further evaluation may be needed if symptoms continue. During the visit, we discussed the management of the patient's chronic conditions, including hyperlipidemia, psoriasis, and thyroid nodules. We reviewed the need for a repeat thyroid ultrasound and the potential for e ndocrinology referral if the nodule size increases. The patient was advised on the management of internal hemorrhoids and the importance of a high fiber diet. We also discussed the management of sciatica with medication and the option of physical therapy if symptoms persist. Orders: Orders Lipid Panel Today Z00.00 - Encounter for general adult medical examination without abnormal findings Magnesium Today Z00.00 - Encounter for general adult medical examination without abnormal findings Hemoglobin A1c Today Z00.00 - Encounter for general adult medical examination without abnormal findings TSH reflex Free T4 Today Z00.00 - Encounter for general adult medical examination without abnormal findings Vitamin B12 and Folate Today Z00.00 - Encounter for general adult medical exami nation without abnormal findings Vitamin D 25-OH Total Today Z00.00 - Encounter for general adult medical examination without abnormal findings US thyroid Today E04.1 - Nontoxic single thyroid nodule Referrals Neurology Referral M50.30 - Other cervical disc degeneration, unspecified cervical region, R20.0 - Anesthesia of skin Medications: New meloxicam 15 mg PO DAILY 30 tabs 3RF cyclobenzaprine 10 mg PO Q8H 30 tabs 3RF Patient Instructions: - Continue taking atorvastatin 20 mg at bedtime for cholesterol management. - Use prescribed ointments daily for psoriasis management. - Follow a high fiber diet and avoid straining to manage internal hemorrhoids. - Schedule a repeat thyroid ultrasound for nodule surveillance. - Take prescribed muscle relaxer and meloxicam for sciatica pain management. - Consider physical therapy if sciatica symptoms persist. - Monitor for any changes in symptoms and report them during follow-up visits.
[2025-07-10 10:37] VITALS: BP 110/61; PULSE 70; RESP 16; TEMP 36.5; O2SAT 99; BMI 23.4
== END 2025-07-10 11:17 | disposition home or self-care (01) ==
LOC: HO.HMCSH 10:29
PROVIDERS: PCP Internal Medicine; Visit Provider Physician Assistant Medical
DX: E78.00 Pure hypercholesterolemia, unspecified (principal); L40.9 Psoriasis, unspecified; K64.8 Other hemorrhoids; E04.1 Nontoxic single thyroid nodule; M54.30 Sciatica, unspecified side; M47.812 Spondylosis without myelopathy or radiculopathy, cervical region; G56.00 Carpal tunnel syndrome, unspecified upper limb

== ENCOUNTER → 2025-07-10 10:29 | Outpatient (BNVA) | payer OTHER, SELFPAY | PROVIDERS: PCP Internal Medicine; Visit Provider Physician Assistant Medical | DX: M47.812 Spondylosis without myelopathy or radiculopathy, cervical region (principal); L40.9 Psoriasis, unspecified; K64.8 Other hemorrhoids; M54.30 Sciatica, unspecified side; E78.00 Pure hypercholesterolemia, unspecified; E04.1 Nontoxic single thyroid nodule; G56.00 Carpal tunnel syndrome, unspecified upper limb; Z79.899 Other long term (current) drug therapy | CPT/HCPCS: 96127; 99212 ==

== ENCOUNTER 2025-07-17 07:26 | Outpatient (REF) | payer OTHER, SELFPAY ==
[2025-07-17 08:58] LABS: Hemoglobin A1C 129.4998 umol/L; Total Hemoglobin (HGBA1C) 3432.0495 umol/L
[2025-07-17 09:25] LABS: Cholesterol 208 mg/dL (<200); HDL Cholesterol 81 mg/dL (>40); Magnesium 2.1 mg/dL (1.6-2.6); Triglycerides 56 mg/dL (<150)
[2025-07-17 09:52] LABS: Folate 14.4 ng/mL (> or = 4.0); Vitamin B12 325 pg/mL (200-900)
== END 2025-07-17 07:27 | disposition home or self-care (01) ==
LOC: HO.LAB 07:26
PROVIDERS: PCP Physician Assistant Medical; Visit Provider Physician Assistant Medical
DX: Z00.00 Encounter for general adult medical examination without abnormal findings (principal)
CPT/HCPCS: 36415; 80061; 82306; 82607; 82746; 83036; 83735; 84443

== ENCOUNTER 2025-08-19 08:57 | Outpatient (REF) | payer OTHER, SELFPAY ==
--- NOTE | ~2025-08-19 | US_ITS ---
EXAMINATION: US THYROID HISTORY: E04.1 - Nontoxic single thyroid nodule TECHNIQUE: Real-time grayscale ultrasound imaging was performed and images were reviewed. COMPARISON: Comparison is made with the prior examination dated 06/18/2023. FINDINGS: SIZE: The right thyroid lobe measures 4.8 x 1.7 x 2.0 cm. The left thyroid lobe measures 4.3 x 1.2 x 1.5 cm. The isthmus measures 3 mm. FLOW: Flow to the gland is increased on the left. ECHOGENICITY: The echotexture of the gland is heterogeneous. NODULES: Again seen is a single nodule as described below: Nodule #: 1 Location: Lower pole of the right thyroid lobe measuring 9 x 6 x 9 mm (previously 11 x 6 x 9 mm). Shape: Wider than tall (0 points) Margins: Smooth (0 points) Echotexture: Hypoechoic (2 points) Composition: Solid (2 points) Calcifications: None (0 points) Total points: 4 TIRADS: TR4: Moderately suspicious. US/US thyroid IMPRESSION: Stable subcentimeter nodule at the lower pole of the right thyroid lobe. ACR TI-RADS Guidelines TR1 (0 points): Benign. No follow-up or biopsy required TR2 (2 points): Not Suspicious. No biopsy or follow up indicated TR3 (3 points): Mildly Suspicious. FNA if >= 2.5 cm, Follow if >= 1.5 cm TR4 (4-6 points): Moderately Suspicious. FNA if >= 1.5 cm, Follow if >= 1.0 cm TR5 (>=7 points): Highly Suspicious. FNA if >= 1.0 cm, Follow if >= 0.5 cm Electronically signed by: Hardik Alcazar MD 08/19/2025 09:53 AM EDT
== END 2025-08-19 08:58 | disposition home or self-care (01) ==
LOC: HO.US 08:57
PROVIDERS: PCP Physician Assistant Medical; Visit Provider Physician Assistant Medical
DX: E04.1 Nontoxic single thyroid nodule (principal)
CPT/HCPCS: 76536

== ENCOUNTER → 2025-08-19 08:59 | Outpatient (BNV) | payer OTHER, SELFPAY | PROVIDERS: PCP Physician Assistant Medical; Visit Provider Radiology Diagnostic Radiology | DX: E04.1 Nontoxic single thyroid nodule (principal) | CPT/HCPCS: 76536 ==

== ENCOUNTER 2025-09-01 07:57 | Outpatient (AMB) | payer OTHER, SELFPAY ==
--- NOTE | 2025-09-01 07:59 | A.OFFVIS_ITS ---
Vital Signs 09/01/25 08:01 Height 5 ft 4 in Weight 136 lb 10.986 oz BMI 23.5 BP 112/78 Blood Pressure Location Rt brachial Position Sitting Pulse 65 Pulse Source Pulse Oximeter Pulse Oximetry (%) 97 Oxygen Delivery Method Room Air Intake Visit Reasons: Nontoxic single thyroid nodule Intake Note: NEW Patient presents today to establish care for Nontoxic single thyroid nodule: No acute complaints reported at this time. Outplacement Consultant Required: No Accompanied by: Self / Same As Patient Allergies Sulfa (Sulfonamide Antibiotics) Allergy (Unknown, Verified 09/01/25 08:02) rash HPI Comments Details: 54 years old female with past medical history of hypothyroidism not on medication, thyroid nodule, and radicular pain, seen in the office for evaluation of thyroid nodule. The patient recalls being previously prescribed a thyroid medication by Dr. Scott several years ago but does not remember the specifics or the reason for its prescription. She reports stopping levothyroxine about 2 years ago, and was not a prescribed again. In terms of a thyroid nodule, she had an ultrasound many years ago, and then she had 1 done in 2022 and another 1 this year. ROS The patient denies experiencing fatigue, weight gain, cold intolerance, or low energy. They report feeling good and having normal energy levels. No depression, cognitive slowing, or concentration difficulty reported. No bradycardia, palpitations, or edema reported. Denies constipation or diarrhea. No dryness or thinning reported. Mother had thyroid issues, including biopsies and surgery, but no cancer. No history of exposure to radiation in the head, neck, or chest area. Physical exam General: Well appearing. NAD. Neck/Thyroid: Thyroid palpable, no nodules. Eyes: No conjunctival injection, not lid lag or proptosis CV: RRR, no murmur. No edema. Resp:Lungs clear to auscultation bilaterally Abdomen: Soft, nontender. nondistended Extremities/Neuro: No weakness or tremor of outstretched hands Laboratory Tests 05/24/22 07/17/25 07:49 07:47 TSH 2.46 2.47 Imaging Thyroid ultrasound 08/19/25 FINDINGS: SIZE: The right thyroid lobe measures 4.8 x 1.7 x 2.0 cm. The left thyroid lobe measures 4.3 x 1.2 x 1.5 cm. The isthmus measures 3 mm. FLOW: Flow to the gland is increased on the left. ECHOGENICITY: The echotexture of the gland is heterogeneous. NODULES: Again seen is a single nodule as described below: Nodule #: 1 Location: Lower pole of the right thyroid lobe measuring 9 x 6 x 9 mm (previously 11 x 6 x 9 mm). Shape: Wider than tall (0 points) Margins: Smooth (0 points) Echotexture: Hypoechoic (2 points) Composition: Solid (2 points) Calcifications: None (0 points) Total points: 4 TIRADS: TR4: Moderately suspicious. IMPRESSION: Stable subcentimeter nodule at the lower pole of the right thyroid lobe. Thyroid ultrasound 06/10/2023 FINDINGS: SIZE: Measurements of the thyroid lobes and nodules are given in sagittal, anteroposterior and transverse dimensions respectively. Right Thyroid Lobe: 4.1 x 1.3 x 1.7 cm, volume 4.7 mL. Previously 4.5 x 1.2 x 1.6 cm, volume 4.6 mL. Parenchyma: The gland echotexture is homogeneous. Thyroid vascularity is increased. Left Thyroid Lobe: 3.8 x 1.3 x 1.5 cm, volume 3.9 mL. Previously 4.1 x 1.1 x 1.2 cm, volume 3.2 mL. Parenchyma: The gland echotexture is homogeneous. Thyroid vascularity is increased. Isthmus: 0.3 cm in maximum AP dimension. Previously 0.2 cm. Estimated total number of nodules greater than or equal to 1 cm: 1. [employer] nodules are described as follows: 1. Location: Right inferior. Size: 1.1 x 0.6 x 0.9 cm, volume 0.3 mL. Previously: 0.8 x 0.7 x 0.6 cm, volume 0.2 mL. Nodule characteristics: Composition: Solid (2). Echogenicity: Hypoechoic (2). Shape: Not taller than wide (0). Margins: Smooth (0). Echogenic Foci: None (0). ACR TI-RADS total points: 4 ACR TI-RADS category: 4 Significant change in size (>/= 20% in 2 dimensions and minimal increase of 2 mm or 50% or greater increase in volume): Yes Change in features: No Change in ACR TI-RADS risk category: No NODES: No lymphadenopathy is seen in the tissue surrounding the thyroid gland. IMPRESSION: 1. A 1.1 cm right thyroid lobe TR 4 nodule is seen, as detailed. Recommend continued thyroid ultrasound surveillance. 2. There is heterogeneous thyroid echotexture and increase in vascularity, which may be associated with thyroiditis. [facility] Medical History Carpal tunnel syndrome Cervical spondylosis Sciatica Internal hemorrhoids H/O mammogram (~03/25/24) Cervical cancer screening Breast cancer screening Neck pain Hypercholesterolemia Thyroid nodule Hypothyroid Psoriasis Surgical History H/O colonoscopy (~05/30/23) Breast implant in situ H/O tubal ligation H/O: hysterectomy Family History Father No problems noted. Mother No problems noted. Brother In good health Son In good health Daughter In good health Social History Housing: Apartment Alcohol intake: current Alcohol intake frequency: 3 or more drinks per day Patient Tobacco Use Status: Current everyday Tobacco user Tobacco use type: Cigarette Cigarettes Per Day: 5 e-Cigarette/Vaping Use: Never Used Second Hand Smoke Exposure: No service: No Current occupational status: employed Current occupational exposures/hazards: No Sexual orientation: Straight/Heterosexual Cognitive needs: No Hearing needs: No Vision needs: Yes (cheaters) Female Reproductive History Menstrual Age of Menarche: 14 Physical Exam Vital Signs: Last Vital Signs Pulse 65 09/01/25 08:01 BP 112/78 09/01/25 08:01 Pulse Ox 97 09/01/25 08:01 Oxygen Delivery Method Room Air 09/01/25 08:01 BMI result Body Mass Index 23.5 Assessment & Plan Assessment & Plan (1) Hypothyroid: Code(s): E03.9 - Hypothyroidism, unspecified Category: Medical (2) Thyroid nodule: Code(s): E04.1 - Nontoxic single thyroid nodule Category: Medical Plan Assessment and plan Patient has a history of hypothyroidism, for which she was on levothyroxine for many years but she stopped 2 years ago. Currently patient is biochemically and clinically euthyroid. In terms of her thyroid nodule, we discussed that the main to concerns about thyroid nodules are either if they are malignant or if there are other producing thyroid hormone. Given that she was on levothyroxine before, and that she has normal TSH in 2021 and 2024, is unlikely that his thyroid nodules are active/hot. She had a thyroid nodule that slightly decreased in size from 2022 to 2024. Consider that there could be some differences in measurement, I think it is worth it to continue to monitor. But we advised the patient that after 3-5 years without significant changes in size or characteristic of the nodule, we can stop following up. For the time being we will monitor the thyroid ultrasound 1 more time next year. Coding Level of Care Code New Pt Level 4 (09852) Diagnoses Hypothyroid E03.9 Thyroid nodule E04.1 Time Spent (min) 45 Comment Time spent on review of previous records, history, exam/plan and patient education.
[2025-09-01 08:01] VITALS: BP 112/78; PULSE 65; O2SAT 97; BMI 23.5
== END 2025-09-01 08:31 | disposition home or self-care (01) ==
LOC: HO.ENCR 07:58
PROVIDERS: PCP Physician Assistant Medical; Visit Provider Student in an Organized Health Care Education/Training Program
DX: E03.9 Hypothyroidism, unspecified (principal); E04.1 Nontoxic single thyroid nodule
CPT/HCPCS: 99204

== ENCOUNTER → 2025-09-01 07:57 | Outpatient (BNVA) | payer OTHER, SELFPAY | PROVIDERS: PCP Physician Assistant Medical; Visit Provider Student in an Organized Health Care Education/Training Program | DX: E04.1 Nontoxic single thyroid nodule (principal); E03.9 Hypothyroidism, unspecified | CPT/HCPCS: 99202 ==

== ENCOUNTER 2025-09-30 09:13 | Outpatient (REF) | payer OTHER, SELFPAY | END 2025-09-30 09:14 | disposition home or self-care (01) | LOC: HO.MAMMO 09:13 | PROVIDERS: PCP Physician Assistant Medical; Visit Provider Physician Assistant Medical | DX: Z12.31 Encounter for screening mammogram for malignant neoplasm of breast (principal) | CPT/HCPCS: 77063; 77067 ==

== ENCOUNTER → 2025-09-30 09:15 | Outpatient (BNV) | payer OTHER, SELFPAY | PROVIDERS: PCP Physician Assistant Medical; Visit Provider Internal Medicine | DX: Z12.31 Encounter for screening mammogram for malignant neoplasm of breast (principal) | CPT/HCPCS: 77063; 77067 ==